=== PATIENT | male | born 1965 | race Caucasian/White ===

== ENCOUNTER 2016-12-24 20:28 | Inpatient (IN) | payer MEDICARE ==
[~2016-12-24] VITALS: Ht 172.7 cm; Wt 68.7 kg
[2016-12-24 21:33] LABS: BASO % 1 % (0-3); EOS # 0.1 x10^3/uL (0.0-0.7); EOS % 2 % (0-3); HEMATOCRIT 41.4 % (39.0-53.0); LYMPH # 2.4 x10^3/uL (1.0-4.8); LYMPH % 34 % (24-48); MEAN CORPUSCULAR HEMOGLOBIN 31 pg (25-35); MEAN CORPUSCULAR HGB CONC 34 g/dL (31-37); MEAN CORPUSCULAR VOLUME 92 fL (79-100); MONO # 0.8 x10^3/uL (0.0-1.1); MONO % 11 % (0-9); NEUT # 3.6 x10^3uL (1.8-7.7); NEUT % 52 % (31-73); PLATELET COUNT 226 x10^3/uL (140-400); RED BLOOD COUNT 4.48 x10^6/uL (4.30-5.70); RED CELL DISTRIBUTION WIDTH 13.4 % (11.5-14.5); WHITE BLOOD COUNT 6.9 x10^3/uL (4.0-11.0)
[2016-12-24 21:42] LABS: ALBUMIN 3.5 g/dL (3.4-5.0); ALBUMIN/GLOBULIN RATIO 1.2 (1.0-1.7); CALCIUM 8.8 mg/dL (8.5-10.1); CREATININE 0.9 mg/dL (0.7-1.3); GFR 88.3; MAGNESIUM 2.2 mg/dL (1.8-2.4); POTASSIUM 3.4 mmol/L (3.5-5.1); TOTAL BILIRUBIN 0.5 mg/dL (0.2-1.0); TOTAL PROTEIN 6.5 g/dL (6.4-8.2)
--- NOTE | 2016-12-24 21:55 | PHYS DOC ---
Past History Past Medical History: Dementia, Depression, Hypothyroid Past Surgical History: No Surgical History Alcohol Use: None Drug Use: None Adult General Chief Complaint Chief Complaint: PSYCH EVALUATION HPI HPI 51-year-old male presenting to the emergency department today for [facility] medical clearance. The patient has a history of early onset dementia hypothyroidism and major depression. He is currently struggling with anxiety for which she has had his medication changed a few times without much success. He's received most of his psychiatric treatment for [facility]. Onset 2-3 days. Location generalized. Duration intermittent. The patient denies any acute pain. Review of systems is negative for shortness of breath chest pain abdominal pain nausea vomiting headache neck stiffness confusion numbness weakness tingling vision changes slurring of speech. All other review of systems is negative unless otherwise noted in history of present illness. ED course: 51-year-old male presenting to the emergency department today for medical clearance for the [place] [facility]. Physical exam baseline and unremarkable. Blood work obtained which was unremarkable. Head CT negative. Patient is medically cleared. Patient was then admitted to our behavioral psychiatric unit. Review of Systems Review of Systems SEE ABOVE. Allergies Allergies Allergies Coded Allergies Type Severity Reaction Last Updated Verified No Known Drug Allergies 12/24/16 No Physical Exam Physical Exam SEE ABOVE Constitutional: Well developed, well nourished, no acute distress, non-toxic appearance. HENT: Normocephalic, atraumatic, bilateral external ears normal, oropharynx moist, no oral exudates, nose normal. Eyes: PERRLA, EOMI, conjunctiva normal, no discharge. [] Neck: Normal range of motion, no tenderness, supple, no stridor. Cardiovascular:Heart rate regular rhythm, no murmur [] Lungs & Thorax: Bilateral breath sounds clear to auscultation Abdomen: Bowel sounds normal, soft, no tenderness, no masses, no pulsatile masses. [] Skin: Warm, dry, no erythema, no rash. Back: No tenderness, no CVA tenderness. [] Extremities: No tenderness, no cyanosis, no clubbing, ROM intact, no edema. Neurologic: Alert and oriented to person which is his baseline, normal motor function, normal sensory function, no focal deficits noted. Psychologic: Affect normal, judgement normal, mood normal. [] Current Patient Data Vital Signs Vital Signs Date Time Temp Pulse Resp B/P (MAP) Pulse Ox O2 Delivery O2 Flow Rate FiO2 12/24/16 20:28 98.2 73 16 100 Room Air Lab Results Laboratory Tests Test 12/24/16 21:05 White Blood Count 6.9 x10^3/uL (4.0-11.0) Red Blood Count 4.48 x10^6/uL (4.30-5.70) Hemoglobin 14.0 g/dL (13.0-17.5) Hematocrit 41.4 % (39.0-53.0) Mean Corpuscular Volume 92 fL (79-100) Mean Corpuscular Hemoglobin 31 pg (25-35) Mean Corpuscular Hemoglobin Concent 34 g/dL (31-37) Red Cell Distribution Width 13.4 % (11.5-14.5) Platelet Count 226 x10^3/uL (140-400) Neutrophils (%) (Auto) 52 % (31-73) Lymphocytes (%) (Auto) 34 % (24-48) Monocytes (%) (Auto) 11 % (0-9) H Eosinophils (%) (Auto) 2 % (0-3) Basophils (%) (Auto) 1 % (0-3) Neutrophils # (Auto) 3.6 x10^3uL (1.8-7.7) Lymphocytes # (Auto) 2.4 x10^3/uL (1.0-4.8) Monocytes # (Auto) 0.8 x10^3/uL (0.0-1.1) Eosinophils # (Auto) 0.1 x10^3/uL (0.0-0.7) Basophils # (Auto) 0.0 x10^3/uL (0.0-0.2) Sodium Level 144 mmol/L (136-145) Potassium Level 3.4 mmol/L (3.5-5.1) L Chloride Level 107 mmol/L (98-107) Carbon Dioxide Level 32 mmol/L (21-32) Anion Gap 5 (6-14) L Blood Urea Nitrogen 12 mg/dL (8-26) Creatinine 0.9 mg/dL (0.7-1.3) Estimated GFR (Cockcroft-Gault) 88.3 BUN/Creatinine Ratio 13 (6-20) Glucose Level 98 mg/dL (70-99) Calcium Level 8.8 mg/dL (8.5-10.1) Magnesium Level 2.2 mg/dL (1.8-2.4) Total Bilirubin 0.5 mg/dL (0.2-1.0) Aspartate Amino Transferase (AST) 19 U/L (15-37) Alanine Aminotransferase (ALT) 26 U/L (16-63) Alkaline Phosphatase 77 U/L (46-116) Total Protein 6.5 g/dL (6.4-8.2) Albumin 3.5 g/dL (3.4-5.0) Albumin/Globulin Ratio 1.2 (1.0-1.7) Ethyl Alcohol Level < 10 mg/dL (0-10) EKG EKG [] Radiology/Procedures Radiology/Procedures [] Course & Med Decision Making Course & Med Decision Making Pertinent Labs and Imaging studies reviewed. (See chart for details) [] Dragon Disclaimer Dragon Disclaimer This chart was dictated in whole or in part using Voice Recognition software in a busy, high-work load, and often noisy Emergency Department environment. It may contain unintended and wholly unrecognized errors or omissions. Departure Departure: Impression: Primary Impression: Medical clearance for psychiatric admission Disposition: ADMITTED INPATIENT Condition: STABLE Referrals: CHRISTOPHE NEWBY DO (PCP) SATINDER CERVANTES MD Dec 24, 2016 21:55
[2016-12-24 22:21] LABS: AMPHETAMINE/METHAMPHETAMINE NEG (NEG); BARBITURATES NEG (NEG); BENZODIAZEPINES POS (NEG); CANNABINOIDS NEG (NEG); COCAINE NEG (NEG); METHADONE NEG (NEG); OPIATES NEG (NEG); PHENCYCLIDINE NEG (NEG)
[2016-12-24 22:33] LABS: BILIRUBIN,URINE NEG (NEG); CLARITY,URINE CLEAR; COLOR,URINE STRAW; GLUCOSE,URINE NEG (NEG)
[2016-12-24 22:34] LABS: BACTERIA,URINE 0 /HPF (0-FEW); NITRITE,URINE NEG (NEG); SQUAMOUS EPITHELIAL CELL,UR MANY /LPF; UROBILINOGEN,URINE 0.2 mg/dL (0.2 mg/dL)
[2016-12-24 22:35] LABS: AMORPHOUS SEDIMENT,UR PRESENT /HPF
--- NOTE | 2016-12-24 22:48 | RAD ---
CT scan of the head without contrast 12/24/2016 Clinical History: Altered mental status and sepsis morning. Technique: Unenhanced, contiguous, 5 mm axial sections were obtained through the head. Findings: No previous imaging studies are available for comparison. There is generalized parenchymal atrophy. Areas of decreased attenuation are seen within the periventricular and subcortical white matter of both cerebral hemispheres consistent with areas of small vessel ischemic disease. No acute parenchymal abnormality is seen. No extra-axial fluid collection is noted. No skull fracture is seen. Impression: No acute intracranial abnormality is seen. Electronically signed by: Mateusz Rivas MD (12/24/2016 10:45 PM) [facility]
[2016-12-24] MEDS ORDERED: SERT100T8 PO (23:26)
[2016-12-24] MEDS ORDERED: GABA-585 PO (23:26)
[2016-12-24] MEDS ORDERED: ACET325T9 PO (23:26)
[2016-12-24] MEDS ORDERED: TRAZ50TA15 PO (23:26)
[2016-12-24] MEDS ORDERED: LEVO112T2 PO (23:26)
[2016-12-24] MEDS ORDERED: DOCU-109 PO (23:26)
[2016-12-24] MEDS ORDERED: MEMA10TA PO (23:26)
[2016-12-24] MEDS ORDERED: ALPR0.254 PO ×2 (23:26)
[2016-12-24] MEDS ORDERED: OLAN2.5T3 PO (23:26)
[2016-12-25] MEDS ORDERED: MAGNESIUM HYDROXIDE 2,400 MG/30 ML ORAL.SUSP. PO PRN
[2016-12-25] MEDS ORDERED: METHYL SALICYLATE/MENTHOL TOPICAL OINTMENT 29GM TUBE. TP PRN
[2016-12-25] MEDS ORDERED: MAG HYDROX/AL HYDROX/SIMETH 30 ML ORAL.SUSP PO PRN
[2016-12-25 00:21] VITALS: BP 101/68
[2016-12-25] MEDS ORDERED: ALPRAZolam 0.25 MG TABLET PO PRN (00:30)
[2016-12-25] MEDS ORDERED: ACETAMINOPHEN 325 MG TABLET PO PRN (00:30)
--- NOTE | 2016-12-25 05:13 | EKG ---
[address] [address] Test Date: 2016-12-24 Test Time: 21:08:18 Pat Name: MIGUEL PINK Department: Room: Gender: M Contract Negotiation Manager: CLAUDIA : 1965 Requested By: ASTINDER CERVANTES Order Number: [id number] Reading MD: Measurements Intervals [place] Rate: 66 P: 50 AK: 138 QRS: 56 QRSD: 90 T: 48 QT: 388 QTc: 408 Interpretive Statements SINUS RHYTHM OTHERWISE NORMAL ECG RI6.01 No previous ECG available for comparison
[2016-12-25] MEDS: LEVOTHYROXINE 112 MCG TABLET PO SCH (05:47)
[2016-12-25 07:06] VITALS: BP 104/66
[2016-12-25] MEDS: MEMANTINE 10 MG TABLET. PO SCH ×2 (09:19→20:16)
[2016-12-25] MEDS: DOCUSATE SODIUM 100 MG CAPSULE PO SCH (09:19)
[2016-12-25] MEDS: ALPRAZolam 0.25 MG TABLET PO SCH (09:21)
[2016-12-25] MEDS: OLANZapine 2.5 MG TABLET PO SCH ×2 (09:21→20:16)
[2016-12-25] MEDS: SERTRALINE 50 MG TABLET. PO SCH (09:21)
[2016-12-25] MEDS: GABAPENTIN 100 MG CAPSULE. PO SCH ×3 (09:21→20:16)
[2016-12-25 13:40] LABS: THYROID STIM HORMONE (TSH) 4.767 uIU/mL (0.358-3.740)
[2016-12-25 16:04] VITALS: BP 120/91
[2016-12-25 19:08] LABS: T3 TOTAL 63 ng/dL (71-180); THYROXINE 5.4 ug/dL (4.5-12.0)
[2016-12-25] MEDS: POTASSIUM CHLORIDE 20 MEQ TABLET.ER. PO SCH (20:16)
[2016-12-25] MEDS: QUEtiapine 25 MG TABLET. PO SCH (20:16)
[2016-12-25] MEDS: traZODone 50 MG TABLET. PO SCH (20:16)
--- NOTE | 2016-12-25 20:54 | PDOC ---
Exam Hiram Demential Exam: Hiram Note: Please also refer to the separate dictated note~for this date of service dictated separately.~Patient seen individually. Discussed the patient with Nursing staff reviewed the chart.~Reviewed interim history and current functioning. Reviewed vital signs,~Labs/ Radiology~and current medications noted below. Continue current treatment with the changes noted in the dictated addendum note Assessment: Vital Signs: Vital Signs Date Time Temp Pulse Resp B/P (MAP) Pulse Ox O2 Delivery O2 Flow Rate FiO2 12/25/16 16:04 97.8 95 18 120/91 (101) 94 12/24/16 23:20 Room Air I&O Intake and Output 12/26/16 07:00 Intake Total 600 ml Balance 600 ml Intake Oral 600 ml Labs: Laboratory Tests Test 12/24/16 21:05 12/24/16 21:28 White Blood Count 6.9 x10^3/uL (4.0-11.0) Red Blood Count 4.48 x10^6/uL (4.30-5.70) Hemoglobin 14.0 g/dL (13.0-17.5) Hematocrit 41.4 % (39.0-53.0) Mean Corpuscular Volume 92 fL (79-100) Mean Corpuscular Hemoglobin 31 pg (25-35) Mean Corpuscular Hemoglobin Concent 34 g/dL (31-37) Red Cell Distribution Width 13.4 % (11.5-14.5) Platelet Count 226 x10^3/uL (140-400) Neutrophils (%) (Auto) 52 % (31-73) Lymphocytes (%) (Auto) 34 % (24-48) Monocytes (%) (Auto) 11 % (0-9) H Eosinophils (%) (Auto) 2 % (0-3) Basophils (%) (Auto) 1 % (0-3) Neutrophils # (Auto) 3.6 x10^3uL (1.8-7.7) Lymphocytes # (Auto) 2.4 x10^3/uL (1.0-4.8) Monocytes # (Auto) 0.8 x10^3/uL (0.0-1.1) Eosinophils # (Auto) 0.1 x10^3/uL (0.0-0.7) Basophils # (Auto) 0.0 x10^3/uL (0.0-0.2) Sodium Level 144 mmol/L (136-145) Potassium Level 3.4 mmol/L (3.5-5.1) L Chloride Level 107 mmol/L (98-107) Carbon Dioxide Level 32 mmol/L (21-32) Anion Gap 5 (6-14) L Blood Urea Nitrogen 12 mg/dL (8-26) Creatinine 0.9 mg/dL (0.7-1.3) Estimated GFR (Cockcroft-Gault) 88.3 BUN/Creatinine Ratio 13 (6-20) Glucose Level 98 mg/dL (70-99) Calcium Level 8.8 mg/dL (8.5-10.1) Magnesium Level 2.2 mg/dL (1.8-2.4) Iron Level 53 ug/dL (65-175) L Total Iron Binding Capacity 244 ug/dL (250-450) L Iron Saturation 22 % (15-34) Total Bilirubin 0.5 mg/dL (0.2-1.0) Aspartate Amino Transferase (AST) 19 U/L (15-37) Alanine Aminotransferase (ALT) 26 U/L (16-63) Alkaline Phosphatase 77 U/L (46-116) Total Protein 6.5 g/dL (6.4-8.2) Albumin 3.5 g/dL (3.4-5.0) Albumin/Globulin Ratio 1.2 (1.0-1.7) Triglycerides Level 61 mg/dL (0-150) Cholesterol Level 214 mg/dL (0-200) H LDL Cholesterol, Calculated 120 mg/dL (0-100) H VLDL Cholesterol, Calculated 12 mg/dL (0-40) Non-HDL Cholesterol Calculated 132 mg/dL (0-129) H HDL Cholesterol 82 mg/dL (40-60) H Cholesterol/HDL Ratio 2.0 Vitamin B12 Level 812 pg/mL (247-911) 25-Hydroxy Vitamin D Total Pending Thyroid Stimulating Hormone (TSH) 4.767 uIU/mL (0.358-3.740) Thyroxine (T4) 5.4 ug/dL (4.5-12.0) Total Triiodothyronine (TT3) 63 ng/dL (71-180) L Ethyl Alcohol Level < 10 mg/dL (0-10) RPR Titer Additional Testing Pending Urine Collection Type U cath Urine Color Straw Urine Clarity Clear Urine pH 5.5 Urine Specific [place] 1.025 Urine Protein Neg (NEG-TRACE) Urine Glucose (UA) Neg mg/dL (NEG) Urine Ketones (Stick) Neg mg/dL (NEG) Urine Blood Neg (NEG) Urine Nitrite Neg (NEG) Urine Bilirubin Neg (NEG) Urine Urobilinogen Dipstick 0.2 mg/dL (0.2 mg/dL) Urine Leukocyte Esterase Neg (NEG) Urine RBC 1-2 /HPF (0-2) Urine WBC 1-4 /HPF (0-4) Urine Squamous Epithelial Cells Many /LPF Urine Amorphous Sediment Present /HPF Urine Bacteria 0 /HPF (0-FEW) Urine Opiates Screen Neg (NEG) Urine Methadone Screen Neg (NEG) Urine Barbiturates Neg (NEG) Urine Phencyclidine Screen Neg (NEG) Urine Amphetamine/Methamphetamine Neg (NEG) Urine Benzodiazepines Screen Pos (NEG) Urine Cocaine Screen Neg (NEG) Urine Cannabinoids Screen Neg (NEG) Urine Ethyl Alcohol Neg (NEG) Current Medications: Meds: Current Medications Multi-Ingredient Ointment (Analgesic [place]) 1 mary PRN QID PRN TP MUSCLE PAIN; Start 12/25/16 at 00:00 Al Hydroxide/Mg Hydroxide (Mylanta Plus Xs) 15 ml PRN AFTMEALHC PRN PO DYSPEPSIA; Start 12/25/16 at 00:00 Magnesium Hydroxide (Milk Of Magnesia) 2,400 mg PRN QHS PRN PO CONSTIPATION; Start 12/25/16 at 00:00 Acetaminophen (Tylenol) 650 mg PRN Q6HRS PRN PO PAIN; Start 12/25/16 at 00:30 Alprazolam (Xanax) 0.25 mg DAILY PO Last administered on 12/25/16 09:21; Start 12/25/16 at 09:00 Alprazolam (Xanax) 0.25 mg PRN Q6HRS PRN PO ANXIETY / AGITATION; Start at 00:30 Docusate Sodium (Colace) 100 mg DAILY PO Last administered on 12/25/16 09:19 ; Start 12/25/16 at 09:00 Gabapentin (Neurontin) 100 mg TID PO Last administered on 12/25/16 20:16; Start 12/25/16 at 09:00 Levothyroxine Sodium (Synthroid) 112 mcg DAILY06 PO Last administered on 05:47; Start 12/25/16 at 06:00 Memantine (Namenda) 10 mg BID PO Last administered on 12/25/16 20:16; Start 12/25/16 at 09:00 Olanzapine (ZyPREXA) 2.5 mg BID PO Last administered on 12/25/16 20:16; Start 12/25/16 at 09:00 Sertraline HCl (Zoloft) 150 mg DAILY PO Last administered on 12/25/16 09:21; Start 12/25/16 at 09:00 Trazodone HCl (Desyrel) 75 mg HS PO Last administered on 12/25/16 20:16; Start 12/25/16 at 21:00 Potassium Chloride (Klor-Con) 20 meq BID PO Last administered on 12/25/16 20: 16; Start 12/25/16 at 21:00 Quetiapine Fumarate (SEROquel) 25 mg QHS PO Last administered on 12/25/16 20: 16; Start 12/25/16 at 21:00 Active Scripts Active Reported Alprazolam 0.25 Mg Tablet 0.25 Mg PO PRN Q6HRS PRN Tylenol (Acetaminophen) 325 Mg Tablet 2 Tab PO PRN Q6HRS PRN Trazodone Hcl 50 Mg Tablet 75 Mg PO HS Sertraline Hcl 100 Mg Tablet 150 Mg PO DAILY Zyprexa (Olanzapine) 2.5 Mg Tablet 2.5 Mg PO BID Namenda (Memantine Hcl) 10 Mg Tablet 10 Mg PO BID Synthroid (Levothyroxine Sodium) 112 Mcg Tablet 112 Mcg PO DAILYAC Gabapentin 100 Mg Capsule 100 Mg PO TID Colace (Docusate Sodium) 100 Mg Capsule 100 Mg PO DAILY Alprazolam 0.25 Mg Tablet 0.25 Mg PO DAILY14 Diagnosis: Problems: (1) Anxiety disorder (2) Dementia, vascular, with delusions (3) Dementia, vascular, with depression (4) Dementia in Alzheimer's disease with depression (5) Dementia in Alzheimer's disease with delusions (6) Impulse control disorder LETICIA GUERRA MD Dec 25, 2016 20:54
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
[2016-12-26 04:09] LABS: HEMOGLOBIN A1C 5.5 % (4.8-5.6)
[2016-12-26] MEDS: LEVOTHYROXINE 112 MCG TABLET PO SCH (05:39)
[2016-12-26 06:30] VITALS: BP 108/60
[2016-12-26] MEDS: SERTRALINE 50 MG TABLET. PO SCH (08:18)
[2016-12-26] MEDS: GABAPENTIN 100 MG CAPSULE. PO SCH ×3 (08:18→19:26)
[2016-12-26] MEDS: DOCUSATE SODIUM 100 MG CAPSULE PO SCH (08:18)
[2016-12-26] MEDS: OLANZapine 2.5 MG TABLET PO SCH ×2 (08:18→19:27)
[2016-12-26] MEDS: MEMANTINE 10 MG TABLET. PO SCH ×2 (08:19→19:27)
[2016-12-26] MEDS: POTASSIUM CHLORIDE 20 MEQ TABLET.ER. PO SCH ×2 (08:19→19:30)
[2016-12-26] MEDS: ALPRAZolam 0.25 MG TABLET PO SCH (08:21)
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
[2016-12-26 16:44] VITALS: BP 102/74
[2016-12-26] MEDS: QUEtiapine 25 MG TABLET. PO SCH (19:27)
[2016-12-26] MEDS: traZODone 50 MG TABLET. PO SCH (19:29)
--- NOTE | 2016-12-26 20:38 | PDOC ---
Exam Hiram Demential Exam: Hiram Note: Please also refer to the separate dictated note~for this date of service dictated separately.~Patient seen individually. Discussed the patient with Nursing staff reviewed the chart.~Reviewed interim history and current functioning. Reviewed vital signs,~Labs/ Radiology~and current medications noted below. Continue current treatment with the changes noted in the dictated addendum note Assessment: Vital Signs: Vital Signs Date Time Temp Pulse Resp B/P (MAP) Pulse Ox O2 Delivery O2 Flow Rate FiO2 12/26/16 16:44 97.7 106 18 102/74 (83) 96 12/24/16 23:20 Room Air I&O Intake and Output 12/27/16 07:00 Intake Total 840 ml Balance 840 ml Intake Oral 840 ml # Bowel Movements 1 Current Medications: Meds: Current Medications Multi-Ingredient Ointment (Analgesic [place]) 1 mary PRN QID PRN TP MUSCLE PAIN; Start 12/25/16 at 00:00 Al Hydroxide/Mg Hydroxide (Mylanta Plus Xs) 15 ml PRN AFTMEALHC PRN PO DYSPEPSIA; Start 12/25/16 at 00:00 Magnesium Hydroxide (Milk Of Magnesia) 2,400 mg PRN QHS PRN PO CONSTIPATION; Start 12/25/16 at 00:00 Acetaminophen (Tylenol) 650 mg PRN Q6HRS PRN PO PAIN; Start 12/25/16 at 00:30 Alprazolam (Xanax) 0.25 mg DAILY PO Last administered on 12/26/16 08:21; Start 12/25/16 at 09:00 Alprazolam (Xanax) 0.25 mg PRN Q6HRS PRN PO ANXIETY / AGITATION; Start at 00:30 Docusate Sodium (Colace) 100 mg DAILY PO Last administered on 12/26/16 08:18 ; Start 12/25/16 at 09:00 Gabapentin (Neurontin) 100 mg TID PO Last administered on 12/26/16 19:26; Start 12/25/16 at 09:00 Levothyroxine Sodium (Synthroid) 112 mcg DAILY06 PO Last administered on 05:39; Start 12/25/16 at 06:00; Stop 12/26/16 at 15:10; Status DC Memantine (Namenda) 10 mg BID PO Last administered on 12/26/16 19:27; Start 12/25/16 at 09:00 Olanzapine (ZyPREXA) 2.5 mg BID PO Last administered on 12/26/16 19:27; Start 12/25/16 at 09:00 Sertraline HCl (Zoloft) 150 mg DAILY PO Last administered on 12/26/16 08:18; Start 12/25/16 at 09:00 Trazodone HCl (Desyrel) 75 mg HS PO Last administered on 12/26/16 19:29; Start 12/25/16 at 21:00 Potassium Chloride (Klor-Con) 20 meq BID PO Last administered on 12/26/16 19: 30; Start 12/25/16 at 21:00 Quetiapine Fumarate (SEROquel) 25 mg QHS PO Last administered on 12/26/16 19: 27; Start 12/25/16 at 21:00 Levothyroxine Sodium (Synthroid) 137 mcg DAILY06 PO ; Start 12/27/16 at 06:00 Divalproex Sodium (Depakote Sprinkles) 125 mg BID92 PO ; Start 12/27/16 at 09: 00 Active Scripts Active Reported Alprazolam 0.25 Mg Tablet 0.25 Mg PO PRN Q6HRS PRN Tylenol (Acetaminophen) 325 Mg Tablet 2 Tab PO PRN Q6HRS PRN Trazodone Hcl 50 Mg Tablet 75 Mg PO HS Sertraline Hcl 100 Mg Tablet 150 Mg PO DAILY Zyprexa (Olanzapine) 2.5 Mg Tablet 2.5 Mg PO BID Namenda (Memantine Hcl) 10 Mg Tablet 10 Mg PO BID Synthroid (Levothyroxine Sodium) 112 Mcg Tablet 112 Mcg PO DAILYAC Gabapentin 100 Mg Capsule 100 Mg PO TID Colace (Docusate Sodium) 100 Mg Capsule 100 Mg PO DAILY Alprazolam 0.25 Mg Tablet 0.25 Mg PO DAILY14 Diagnosis: Problems: (1) Anxiety disorder (2) Dementia, vascular, with delusions (3) Dementia, vascular, with depression (4) Dementia in Alzheimer's disease with depression (5) Dementia in Alzheimer's disease with delusions (6) Impulse control disorder LETICIA GUERRA MD Dec 26, 2016 20:38
[2016-12-27] MEDS: LEVOTHYROXINE 137 MCG TABLET PO SCH (06:07)
[2016-12-27 06:12] VITALS: BP 138/96
[2016-12-27] MEDS: DOCUSATE SODIUM 100 MG CAPSULE PO SCH (09:48)
[2016-12-27] MEDS: POTASSIUM CHLORIDE 20 MEQ TABLET.ER. PO SCH ×2 (09:49→20:18)
[2016-12-27] MEDS: GABAPENTIN 100 MG CAPSULE. PO SCH ×3 (09:49→20:18)
[2016-12-27] MEDS: OLANZapine 2.5 MG TABLET PO SCH ×2 (09:49→20:18)
[2016-12-27] MEDS: MEMANTINE 10 MG TABLET. PO SCH ×2 (09:49→20:18)
[2016-12-27] MEDS: SERTRALINE 50 MG TABLET. PO SCH (09:49)
[2016-12-27] MEDS: DIVALPROEX 125 MG CAP.SPRINK PO SCH ×2 (09:52→14:21)
[2016-12-27] MEDS: ALPRAZolam 0.25 MG TABLET PO SCH (09:52)
[2016-12-27 16:32] VITALS: BP 120/73
[2016-12-27] MEDS: QUEtiapine 25 MG TABLET. PO SCH (20:18)
[2016-12-27] MEDS: traZODone 50 MG TABLET. PO SCH (20:18)
--- NOTE | 2016-12-27 20:44 | PDOC ---
Exam Hiram Demential Exam: Hiram Note: Please also refer to the separate dictated note~for this date of service dictated separately.~Patient seen individually. Discussed the patient with Nursing staff reviewed the chart.~Reviewed interim history and current functioning. Reviewed vital signs,~Labs/ Radiology~and current medications noted below. Continue current treatment with the changes noted in the dictated addendum note Assessment: Vital Signs: Vital Signs Date Time Temp Pulse Resp B/P (MAP) Pulse Ox O2 Delivery O2 Flow Rate FiO2 12/27/16 16:32 97.2 89 18 120/73 (89) 97 12/24/16 23:20 Room Air I&O Intake and Output 12/28/16 07:00 Intake Total 1080 ml Balance 1080 ml Intake Oral 1080 ml Current Medications: Meds: Current Medications Multi-Ingredient Ointment (Analgesic [place]) 1 mary PRN QID PRN TP MUSCLE PAIN; Start 12/25/16 at 00:00 Al Hydroxide/Mg Hydroxide (Mylanta Plus Xs) 15 ml PRN AFTMEALHC PRN PO DYSPEPSIA; Start 12/25/16 at 00:00 Magnesium Hydroxide (Milk Of Magnesia) 2,400 mg PRN QHS PRN PO CONSTIPATION; Start 12/25/16 at 00:00 Acetaminophen (Tylenol) 650 mg PRN Q6HRS PRN PO PAIN; Start 12/25/16 at 00:30 Alprazolam (Xanax) 0.25 mg DAILY PO Last administered on 12/27/16 09:52; Start 12/25/16 at 09:00 Alprazolam (Xanax) 0.25 mg PRN Q6HRS PRN PO ANXIETY / AGITATION; Start at 00:30 Docusate Sodium (Colace) 100 mg DAILY PO Last administered on 12/27/16 09:48 ; Start 12/25/16 at 09:00 Gabapentin (Neurontin) 100 mg TID PO Last administered on 12/27/16 20:18; Start 12/25/16 at 09:00 Levothyroxine Sodium (Synthroid) 112 mcg DAILY06 PO Last administered on 05:39; Start 12/25/16 at 06:00; Stop 12/26/16 at 15:10; Status DC Memantine (Namenda) 10 mg BID PO Last administered on 12/27/16 20:18; Start 12/25/16 at 09:00 Olanzapine (ZyPREXA) 2.5 mg BID PO Last administered on 12/27/16 20:18; Start 12/25/16 at 09:00 Sertraline HCl (Zoloft) 150 mg DAILY PO Last administered on 12/27/16 09:49; Start 12/25/16 at 09:00 Trazodone HCl (Desyrel) 75 mg HS PO Last administered on 12/27/16 20:18; Start 12/25/16 at 21:00 Potassium Chloride (Klor-Con) 20 meq BID PO Last administered on 12/27/16 20: 18; Start 12/25/16 at 21:00 Quetiapine Fumarate (SEROquel) 25 mg QHS PO Last administered on 12/27/16 20: 18; Start 12/25/16 at 21:00 Levothyroxine Sodium (Synthroid) 137 mcg DAILY06 PO Last administered on 06:07; Start 12/27/16 at 06:00 Divalproex Sodium (Depakote Sprinkles) 125 mg BID92 PO Last administered on 14:21; Start 12/27/16 at 09:00 Active Scripts Active Reported Alprazolam 0.25 Mg Tablet 0.25 Mg PO PRN Q6HRS PRN Tylenol (Acetaminophen) 325 Mg Tablet 2 Tab PO PRN Q6HRS PRN Trazodone Hcl 50 Mg Tablet 75 Mg PO HS Sertraline Hcl 100 Mg Tablet 150 Mg PO DAILY Zyprexa (Olanzapine) 2.5 Mg Tablet 2.5 Mg PO BID Namenda (Memantine Hcl) 10 Mg Tablet 10 Mg PO BID Synthroid (Levothyroxine Sodium) 112 Mcg Tablet 112 Mcg PO DAILYAC Gabapentin 100 Mg Capsule 100 Mg PO TID Colace (Docusate Sodium) 100 Mg Capsule 100 Mg PO DAILY Alprazolam 0.25 Mg Tablet 0.25 Mg PO DAILY14 Diagnosis: Problems: (1) Anxiety disorder (2) Dementia, vascular, with delusions (3) Dementia, vascular, with depression (4) Dementia in Alzheimer's disease with depression (5) Dementia in Alzheimer's disease with delusions (6) Impulse control disorder LETICIA GUERRA MD Dec 27, 2016 20:44
[2016-12-28] MEDS: LEVOTHYROXINE 137 MCG TABLET PO SCH (05:25)
[2016-12-28] MEDS: MEMANTINE 10 MG TABLET. PO SCH ×2 (09:40→19:25)
[2016-12-28] MEDS: POTASSIUM CHLORIDE 20 MEQ TABLET.ER. PO SCH ×2 (09:40→19:26)
[2016-12-28] MEDS: GABAPENTIN 100 MG CAPSULE. PO SCH ×3 (09:40→19:26)
[2016-12-28] MEDS: SERTRALINE 50 MG TABLET. PO SCH (09:40)
[2016-12-28] MEDS: OLANZapine 2.5 MG TABLET PO SCH ×2 (09:41→19:26)
[2016-12-28] MEDS: DOCUSATE SODIUM 100 MG CAPSULE PO SCH (09:41)
[2016-12-28] MEDS: DIVALPROEX 125 MG CAP.SPRINK PO SCH ×2 (09:41→13:35)
[2016-12-28] MEDS: ALPRAZolam 0.25 MG TABLET PO SCH (09:43)
[2016-12-28 16:43] VITALS: BP 116/76
[2016-12-28] MEDS: QUEtiapine 25 MG TABLET. PO SCH (19:25)
[2016-12-28] MEDS: traZODone 50 MG TABLET. PO SCH (19:25)
--- NOTE | 2016-12-28 20:53 | PDOC ---
Exam Hiram Demential Exam: Hiram Note: Please also refer to the separate dictated note~for this date of service dictated separately.~Patient seen individually. Discussed the patient with Nursing staff reviewed the chart.~Reviewed interim history and current functioning. Reviewed vital signs,~Labs/ Radiology~and current medications noted below. Continue current treatment with the changes noted in the dictated addendum note Assessment: Vital Signs: Vital Signs Date Time Temp Pulse Resp B/P (MAP) Pulse Ox O2 Delivery O2 Flow Rate FiO2 12/28/16 16:43 98.0 87 20 116/76 (89) 99 12/24/16 23:20 Room Air I&O Intake and Output 12/29/16 07:00 Intake Total 720 ml Balance 720 ml Intake Oral 720 ml Current Medications: Meds: Current Medications Multi-Ingredient Ointment (Analgesic [place]) 1 mary PRN QID PRN TP MUSCLE PAIN; Start 12/25/16 at 00:00 Al Hydroxide/Mg Hydroxide (Mylanta Plus Xs) 15 ml PRN AFTMEALHC PRN PO DYSPEPSIA; Start 12/25/16 at 00:00 Magnesium Hydroxide (Milk Of Magnesia) 2,400 mg PRN QHS PRN PO CONSTIPATION; Start 12/25/16 at 00:00 Acetaminophen (Tylenol) 650 mg PRN Q6HRS PRN PO PAIN; Start 12/25/16 at 00:30 Alprazolam (Xanax) 0.25 mg DAILY PO Last administered on 12/28/16 09:43; Start 12/25/16 at 09:00 Alprazolam (Xanax) 0.25 mg PRN Q6HRS PRN PO ANXIETY / AGITATION; Start at 00:30 Docusate Sodium (Colace) 100 mg DAILY PO Last administered on 12/28/16 09:41 ; Start 12/25/16 at 09:00 Gabapentin (Neurontin) 100 mg TID PO Last administered on 12/28/16 19:26; Start 12/25/16 at 09:00 Levothyroxine Sodium (Synthroid) 112 mcg DAILY06 PO Last administered on 05:39; Start 12/25/16 at 06:00; Stop 12/26/16 at 15:10; Status DC Memantine (Namenda) 10 mg BID PO Last administered on 12/28/16 19:25; Start 12/25/16 at 09:00 Olanzapine (ZyPREXA) 2.5 mg BID PO Last administered on 12/28/16 19:26; Start 12/25/16 at 09:00 Sertraline HCl (Zoloft) 150 mg DAILY PO Last administered on 12/28/16 09:40; Start 12/25/16 at 09:00 Trazodone HCl (Desyrel) 75 mg HS PO Last administered on 12/28/16 19:25; Start 12/25/16 at 21:00 Potassium Chloride (Klor-Con) 20 meq BID PO Last administered on 12/28/16 19: 26; Start 12/25/16 at 21:00 Quetiapine Fumarate (SEROquel) 25 mg QHS PO Last administered on 12/28/16 19: 25; Start 12/25/16 at 21:00 Levothyroxine Sodium (Synthroid) 137 mcg DAILY06 PO Last administered on 05:25; Start 12/27/16 at 06:00 Divalproex Sodium (Depakote Sprinkles) 125 mg BID92 PO Last administered on 13:35; Start 12/27/16 at 09:00 Active Scripts Active Reported Alprazolam 0.25 Mg Tablet 0.25 Mg PO PRN Q6HRS PRN Tylenol (Acetaminophen) 325 Mg Tablet 2 Tab PO PRN Q6HRS PRN Trazodone Hcl 50 Mg Tablet 75 Mg PO HS Sertraline Hcl 100 Mg Tablet 150 Mg PO DAILY Zyprexa (Olanzapine) 2.5 Mg Tablet 2.5 Mg PO BID Namenda (Memantine Hcl) 10 Mg Tablet 10 Mg PO BID Synthroid (Levothyroxine Sodium) 112 Mcg Tablet 112 Mcg PO DAILYAC Gabapentin 100 Mg Capsule 100 Mg PO TID Colace (Docusate Sodium) 100 Mg Capsule 100 Mg PO DAILY Alprazolam 0.25 Mg Tablet 0.25 Mg PO DAILY14 Diagnosis: Problems: (1) Anxiety disorder (2) Dementia, vascular, with delusions (3) Dementia, vascular, with depression (4) Dementia in Alzheimer's disease with depression (5) Dementia in Alzheimer's disease with delusions (6) Impulse control disorder LETICIA GUERRA MD Dec 28, 2016 20:53
--- NOTE | 2016-12-29 00:12 | PN ---
DATE: 12/26/2016 This is a late entry 12/26/2016, covers elements not covered in my initial note of 12/26/2016. I met with the patient evening of 12/26/2016. The patient slept 6-3/4 hours previous evening, resistive, anxious, restless, confused. He is more agitated after lunch. Walks with a gait belt, had a bowel movement, then was much calmer, compliant with his medications. REVIEW OF SYSTEMS: Ambulation impaired. No CV, , pulmonary, eye, ENT system symptoms on review. Reliability poor. MENTAL STATUS EXAM: Oriented to himself. Insight, judgment, recent and remote memory, attention, concentration, fund of knowledge poor, consistent with his diagnosis. LABORATORY DATA: Reviewed. IMPRESSION: Unchanged from initial note. PLAN: Start Depakote Sprinkles 125 mg twice a day. Check CBC, CMP, valproic acid level in 3 days and may consider reducing the Zyprexa scheduled at a later date currently at 2.5 mg b.i.d. Maintain Zoloft 150 mg a day, Namenda 10 mg b.i.d., Xanax 0.25 mg daily, trazodone 75 mg at bedtime p.r.n., Seroquel 25 mg at bedtime. Review drug interactions risk/benefit ratio favors no further change. MAN Nilda GUERRA MD DR: WENDY/evie JOB#: [id number] / [id number]
--- NOTE | 2016-12-29 03:57 | PN ---
DATE: 12/27/2016 This late entry, date of service 12/27/2016, covers elements not covered in my initial note of 12/27/2016. SUBJECTIVE: The patient was seen individually evening of 12/27/2016, staffed at treatment team meeting with the entire team morning of 12/27/2016. Reviewed his history with the onset of dementia at age 48. He is oblivious of his surroundings, confused, but calm, cooperative, at times restless. Once he is restless, if he is assisted in his walking, he seems to calm down. He was seen by Dr. Padilla for Neurology consult with question of G[place]'s, but this is not evident. REVIEW OF SYSTEMS: Ambulation impaired. No CV, , pulmonary, eye, ENT system symptoms on review. Reliability poor. MENTAL STATUS EXAM: Oriented to himself. Insight, judgment, recent and remote memory, attention, concentration, fund of knowledge poor, consistent with his diagnosis mentioned in my initial note. PLAN: Continue current psychotropics mentioned in my initial note. Reviewed drug interactions. Risk/benefit ratio favors no further change. MAN Nilda GUERRA MD DR: WENDY/evie JOB#: [id number] / [id number]
[2016-12-29] MEDS: LEVOTHYROXINE 137 MCG TABLET PO SCH (05:40)
[2016-12-29 06:35] VITALS: BP 109/80
[2016-12-29] MEDS: MEMANTINE 10 MG TABLET. PO SCH ×2 (09:02→20:55)
[2016-12-29] MEDS: POTASSIUM CHLORIDE 20 MEQ TABLET.ER. PO SCH ×2 (09:02→20:56)
[2016-12-29] MEDS: DIVALPROEX 125 MG CAP.SPRINK PO SCH ×2 (09:02→14:23)
[2016-12-29] MEDS: DOCUSATE SODIUM 100 MG CAPSULE PO SCH (09:02)
[2016-12-29] MEDS: GABAPENTIN 100 MG CAPSULE. PO SCH ×3 (09:03→20:55)
[2016-12-29] MEDS: ALPRAZolam 0.25 MG TABLET PO SCH (09:03)
[2016-12-29] MEDS: OLANZapine 2.5 MG TABLET PO SCH ×2 (09:03→20:56)
[2016-12-29] MEDS: SERTRALINE 50 MG TABLET. PO SCH (09:03)
[2016-12-29 11:11] LABS: HEMOGLOBIN 15.3 g/dL (13.0-17.5); RED BLOOD COUNT 4.92 x10^6/uL (4.30-5.70); RED CELL DISTRIBUTION WIDTH 13.3 % (11.5-14.5); WHITE BLOOD COUNT 7.2 x10^3/uL (4.0-11.0)
[2016-12-29 11:20] LABS: ALBUMIN/GLOBULIN RATIO 1.1 (1.0-1.7); ALK PHOS 87 U/L (46-116); ALT (SGPT) 33 U/L (16-63); ANION GAP 7 (6-14); AST (SGOT) 30 U/L (15-37); BLOOD UREA NITROGEN 12 mg/dL (8-26); BUN/CREATININE RATIO 13 (6-20); CALCIUM 9.2 mg/dL (8.5-10.1); CARBON DIOXIDE 32 mmol/L (21-32); CHLORIDE 103 mmol/L (98-107); CREATININE 0.9 mg/dL (0.7-1.3); GFR 88.3; GLUCOSE 101 mg/dL (70-99); POTASSIUM 4.2 mmol/L (3.5-5.1); SODIUM 142 mmol/L (136-145); TOTAL BILIRUBIN 0.6 mg/dL (0.2-1.0); TOTAL PROTEIN 7.7 g/dL (6.4-8.2)
[2016-12-29 11:22] LABS: VAL ACID 19 mcg/mL (50-100)
[2016-12-29 16:17] VITALS: BP 110/68
[2016-12-29] MEDS: QUEtiapine 25 MG TABLET. PO SCH (20:55)
[2016-12-29] MEDS: traZODone 50 MG TABLET. PO SCH (20:56)
--- NOTE | 2016-12-29 21:57 | PDOC ---
Exam Hiram Demential Exam: Hiram Note: Please also refer to the separate dictated note~for this date of service dictated separately.~Patient seen individually. Discussed the patient with Nursing staff reviewed the chart.~Reviewed interim history and current functioning. Reviewed vital signs,~Labs/ Radiology~and current medications noted below. Continue current treatment with the changes noted in the dictated addendum note Assessment: Vital Signs: Vital Signs Date Time Temp Pulse Resp B/P (MAP) Pulse Ox O2 Delivery O2 Flow Rate FiO2 12/29/16 16:17 97.9 99 20 110/68 (82) 97 Room Air I&O Intake and Output 12/30/16 07:00 Intake Total 1200 ml Balance 1200 ml Intake Oral 1200 ml Labs: Laboratory Tests Test 12/29/16 10:48 White Blood Count 7.2 x10^3/uL (4.0-11.0) Red Blood Count 4.92 x10^6/uL (4.30-5.70) Hemoglobin 15.3 g/dL (13.0-17.5) Hematocrit 46.0 % (39.0-53.0) Mean Corpuscular Volume 93 fL (79-100) Mean Corpuscular Hemoglobin 31 pg (25-35) Mean Corpuscular Hemoglobin Concent 33 g/dL (31-37) Red Cell Distribution Width 13.3 % (11.5-14.5) Platelet Count 256 x10^3/uL (140-400) Sodium Level 142 mmol/L (136-145) Potassium Level 4.2 mmol/L (3.5-5.1) Chloride Level 103 mmol/L (98-107) Carbon Dioxide Level 32 mmol/L (21-32) Anion Gap 7 (6-14) Blood Urea Nitrogen 12 mg/dL (8-26) Creatinine 0.9 mg/dL (0.7-1.3) Estimated GFR (Cockcroft-Gault) 88.3 BUN/Creatinine Ratio 13 (6-20) Glucose Level 101 mg/dL (70-99) H Calcium Level 9.2 mg/dL (8.5-10.1) Magnesium Level 2.2 mg/dL (1.8-2.4) Total Bilirubin 0.6 mg/dL (0.2-1.0) Aspartate Amino Transferase (AST) 30 U/L (15-37) Alanine Aminotransferase (ALT) 33 U/L (16-63) Alkaline Phosphatase 87 U/L (46-116) Total Protein 7.7 g/dL (6.4-8.2) Albumin 4.0 g/dL (3.4-5.0) Albumin/Globulin Ratio 1.1 (1.0-1.7) Valproic Acid Level 19 mcg/mL (50-100) L Valproic Acid Last Dose Date 12/28/16 Valproic Acid Last Dose Time 2100 Current Medications: Meds: Current Medications Multi-Ingredient Ointment (Analgesic [place]) 1 mary PRN QID PRN TP MUSCLE PAIN; Start 12/25/16 at 00:00 Al Hydroxide/Mg Hydroxide (Mylanta Plus Xs) 15 ml PRN AFTMEALHC PRN PO DYSPEPSIA; Start 12/25/16 at 00:00 Magnesium Hydroxide (Milk Of Magnesia) 2,400 mg PRN QHS PRN PO CONSTIPATION; Start 12/25/16 at 00:00 Acetaminophen (Tylenol) 650 mg PRN Q6HRS PRN PO PAIN; Start 12/25/16 at 00:30 Alprazolam (Xanax) 0.25 mg DAILY PO Last administered on 12/29/16 09:03; Start 12/25/16 at 09:00 Alprazolam (Xanax) 0.25 mg PRN Q6HRS PRN PO ANXIETY / AGITATION; Start at 00:30 Docusate Sodium (Colace) 100 mg DAILY PO Last administered on 12/29/16 09:02 ; Start 12/25/16 at 09:00 Gabapentin (Neurontin) 100 mg TID PO Last administered on 12/29/16 20:55; Start 12/25/16 at 09:00 Levothyroxine Sodium (Synthroid) 112 mcg DAILY06 PO Last administered on 05:39; Start 12/25/16 at 06:00; Stop 12/26/16 at 15:10; Status DC Memantine (Namenda) 10 mg BID PO Last administered on 12/29/16 20:55; Start 12/25/16 at 09:00 Olanzapine (ZyPREXA) 2.5 mg BID PO Last administered on 12/29/16 20:56; Start 12/25/16 at 09:00 Sertraline HCl (Zoloft) 150 mg DAILY PO Last administered on 12/29/16 09:03; Start 12/25/16 at 09:00 Trazodone HCl (Desyrel) 75 mg HS PO Last administered on 12/29/16 20:56; Start 12/25/16 at 21:00 Potassium Chloride (Klor-Con) 20 meq BID PO Last administered on 12/29/16 20: 56; Start 12/25/16 at 21:00 Quetiapine Fumarate (SEROquel) 25 mg QHS PO Last administered on 12/29/16 20: 55; Start 12/25/16 at 21:00 Levothyroxine Sodium (Synthroid) 137 mcg DAILY06 PO Last administered on 05:40; Start 12/27/16 at 06:00 Divalproex Sodium (Depakote Sprinkles) 125 mg BID92 PO Last administered on 14:23; Start 12/27/16 at 09:00 Active Scripts Active Reported Alprazolam 0.25 Mg Tablet 0.25 Mg PO PRN Q6HRS PRN Tylenol (Acetaminophen) 325 Mg Tablet 2 Tab PO PRN Q6HRS PRN Trazodone Hcl 50 Mg Tablet 75 Mg PO HS Sertraline Hcl 100 Mg Tablet 150 Mg PO DAILY Zyprexa (Olanzapine) 2.5 Mg Tablet 2.5 Mg PO BID Namenda (Memantine Hcl) 10 Mg Tablet 10 Mg PO BID Synthroid (Levothyroxine Sodium) 112 Mcg Tablet 112 Mcg PO DAILYAC Gabapentin 100 Mg Capsule 100 Mg PO TID Colace (Docusate Sodium) 100 Mg Capsule 100 Mg PO DAILY Alprazolam 0.25 Mg Tablet 0.25 Mg PO DAILY14 Diagnosis: Problems: (1) Medical clearance for psychiatric admission (2) Anxiety disorder (3) Dementia, vascular, with delusions (4) Dementia, vascular, with depression (5) Dementia in Alzheimer's disease with depression (6) Dementia in Alzheimer's disease with delusions (7) Impulse control disorder LETICIA GUERRA MD Dec 29, 2016 21:57
--- NOTE | 2016-12-30 01:46 | PN ---
DATE: 12/28/2016 This late entry for 12/28/2016 covers elements not covered in my initial note of 12/28/2016. SUBJECTIVE: I met with the patient the evening of 12/28/2016. The patient remains confused, cooperative, appears happy, smiling, appetite is fair, slept 6-3/4 hours, gets a little anxious, paranoid at times, but not aggressive. Family came to visit him, stays out in the day room and went outside for activities. REVIEW OF SYSTEMS: No CV, , pulmonary, eye, ENT system symptoms on review. Reliability poor. MENTAL STATUS EXAMINATION: Oriented to himself. Insight, judgment, recent and remote memory, attention, concentration, fund of knowledge poor, consistent with his diagnosis mentioned in my initial note. PLAN: Continue current psychotropics. Reviewed drug interactions. . Risk/benefit ratio favors no further change. MAN Nilda GUERRA MD DR: WENDY/evie JOB#: [id number] / [id number]
[2016-12-30] MEDS: LEVOTHYROXINE 137 MCG TABLET PO SCH (05:33)
[2016-12-30 06:15] VITALS: BP 113/89
[2016-12-30] MEDS: DIVALPROEX 125 MG CAP.SPRINK PO SCH ×2 (09:05→13:55)
[2016-12-30] MEDS: DOCUSATE SODIUM 100 MG CAPSULE PO SCH (09:05)
[2016-12-30] MEDS: POTASSIUM CHLORIDE 20 MEQ TABLET.ER. PO SCH ×2 (09:05→20:15)
[2016-12-30] MEDS: OLANZapine 2.5 MG TABLET PO SCH ×2 (09:06→20:15)
[2016-12-30] MEDS: SERTRALINE 50 MG TABLET. PO SCH (09:06)
[2016-12-30] MEDS: ALPRAZolam 0.25 MG TABLET PO SCH (09:06)
[2016-12-30] MEDS: GABAPENTIN 100 MG CAPSULE. PO SCH ×3 (09:06→20:14)
[2016-12-30] MEDS: MEMANTINE 10 MG TABLET. PO SCH ×2 (09:06→20:15)
--- NOTE | 2016-12-30 10:06 | PN ---
DATE: 12/29/2016 PSYCHIATRIC PROGRESS NOTE This is a late entry 12/29/2016, covers elements not covered in my initial note of 12/29/2016. SUBJECTIVE: I met with the patient evening 12/29/2016. The patient remains confused, otherwise pleasant, cooperative, not very interactive, but smiling. REVIEW OF SYSTEMS: No CV, , pulmonary, eye, ENT system symptoms on review. Reliability poor. MENTAL STATUS EXAM: Oriented to himself. Insight, judgment, recent and remote memory, attention, concentration, fund of knowledge poor, consistent with his diagnoses mentioned in my initial note. PLAN: Continue current psychotropics mentioned in my initial note. Review drug interactions. Risk/benefit ratio favors no further change. MAN Nilda GUERRA MD DR: WENDY/evie JOB#: [id number] / [id number]
[2016-12-30 16:23] VITALS: BP 105/66
[2016-12-30] MEDS: traZODone 50 MG TABLET. PO SCH (20:14)
[2016-12-30] MEDS: QUEtiapine 25 MG TABLET. PO SCH (20:15)
--- NOTE | 2016-12-30 20:57 | PDOC ---
Exam Hiram Demential Exam: Hiram Note: Please also refer to the separate dictated note~for this date of service dictated separately.~Patient seen individually. Discussed the patient with Nursing staff reviewed the chart.~Reviewed interim history and current functioning. Reviewed vital signs,~Labs/ Radiology~and current medications noted below. Continue current treatment with the changes noted in the dictated addendum note Assessment: Vital Signs: Vital Signs Date Time Temp Pulse Resp B/P (MAP) Pulse Ox O2 Delivery O2 Flow Rate FiO2 12/30/16 16:23 98.8 88 16 105/66 (79) 100 Room Air I&O Intake and Output 12/31/16 07:00 Intake Total 720 ml Balance 720 ml Intake Oral 720 ml Current Medications: Meds: Current Medications Multi-Ingredient Ointment (Analgesic [place]) 1 mary PRN QID PRN TP MUSCLE PAIN; Start 12/25/16 at 00:00 Al Hydroxide/Mg Hydroxide (Mylanta Plus Xs) 15 ml PRN AFTMEALHC PRN PO DYSPEPSIA; Start 12/25/16 at 00:00 Magnesium Hydroxide (Milk Of Magnesia) 2,400 mg PRN QHS PRN PO CONSTIPATION; Start 12/25/16 at 00:00 Acetaminophen (Tylenol) 650 mg PRN Q6HRS PRN PO PAIN; Start 12/25/16 at 00:30 Alprazolam (Xanax) 0.25 mg DAILY PO Last administered on 12/30/16 09:06; Start 12/25/16 at 09:00 Alprazolam (Xanax) 0.25 mg PRN Q6HRS PRN PO ANXIETY / AGITATION; Start at 00:30 Docusate Sodium (Colace) 100 mg DAILY PO Last administered on 12/30/16 09:05 ; Start 12/25/16 at 09:00 Gabapentin (Neurontin) 100 mg TID PO Last administered on 12/30/16 20:14; Start 12/25/16 at 09:00 Levothyroxine Sodium (Synthroid) 112 mcg DAILY06 PO Last administered on 05:39; Start 12/25/16 at 06:00; Stop 12/26/16 at 15:10; Status DC Memantine (Namenda) 10 mg BID PO Last administered on 12/30/16 20:15; Start 12/25/16 at 09:00 Olanzapine (ZyPREXA) 2.5 mg BID PO Last administered on 12/30/16 20:15; Start 12/25/16 at 09:00 Sertraline HCl (Zoloft) 150 mg DAILY PO Last administered on 12/30/16 09:06; Start 12/25/16 at 09:00 Trazodone HCl (Desyrel) 75 mg HS PO Last administered on 12/30/16 20:14; Start 12/25/16 at 21:00 Potassium Chloride (Klor-Con) 20 meq BID PO Last administered on 12/30/16 20: 15; Start 12/25/16 at 21:00 Quetiapine Fumarate (SEROquel) 25 mg QHS PO Last administered on 12/30/16 20: 15; Start 12/25/16 at 21:00 Levothyroxine Sodium (Synthroid) 137 mcg DAILY06 PO Last administered on 05:33; Start 12/27/16 at 06:00 Divalproex Sodium (Depakote Sprinkles) 125 mg BID92 PO Last administered on 13:55; Start 12/27/16 at 09:00 Active Scripts Active Reported Alprazolam 0.25 Mg Tablet 0.25 Mg PO PRN Q6HRS PRN Tylenol (Acetaminophen) 325 Mg Tablet 2 Tab PO PRN Q6HRS PRN Trazodone Hcl 50 Mg Tablet 75 Mg PO HS Sertraline Hcl 100 Mg Tablet 150 Mg PO DAILY Zyprexa (Olanzapine) 2.5 Mg Tablet 2.5 Mg PO BID Namenda (Memantine Hcl) 10 Mg Tablet 10 Mg PO BID Synthroid (Levothyroxine Sodium) 112 Mcg Tablet 112 Mcg PO DAILYAC Gabapentin 100 Mg Capsule 100 Mg PO TID Colace (Docusate Sodium) 100 Mg Capsule 100 Mg PO DAILY Alprazolam 0.25 Mg Tablet 0.25 Mg PO DAILY14 Diagnosis: Problems: (1) Anxiety disorder (2) Dementia, vascular, with delusions (3) Dementia, vascular, with depression (4) Dementia in Alzheimer's disease with depression (5) Dementia in Alzheimer's disease with delusions (6) Impulse control disorder LETICIA GUERRA MD Dec 30, 2016 20:57
[2016-12-31] MEDS: LEVOTHYROXINE 137 MCG TABLET PO SCH (05:39)
[2016-12-31 07:26] VITALS: BP_SYST 106; BP_SYST 142; BP_DIAS 72; BP_DIAS 79
[2016-12-31] MEDS: GABAPENTIN 100 MG CAPSULE. PO SCH ×3 (08:27→20:05)
[2016-12-31] MEDS: DIVALPROEX 125 MG CAP.SPRINK PO SCH ×2 (08:27→13:52)
[2016-12-31] MEDS: ALPRAZolam 0.25 MG TABLET PO SCH (08:27)
[2016-12-31] MEDS: MEMANTINE 10 MG TABLET. PO SCH ×2 (08:27→20:05)
[2016-12-31] MEDS: POTASSIUM CHLORIDE 20 MEQ TABLET.ER. PO SCH ×2 (08:27→20:05)
[2016-12-31] MEDS: DOCUSATE SODIUM 100 MG CAPSULE PO SCH (08:27)
[2016-12-31] MEDS: OLANZapine 2.5 MG TABLET PO SCH ×2 (08:28→20:05)
[2016-12-31] MEDS: SERTRALINE 50 MG TABLET. PO SCH (08:28)
[2016-12-31 16:19] VITALS: BP 105/74
[2016-12-31] MEDS: traZODone 50 MG TABLET. PO SCH (20:05)
[2016-12-31] MEDS: QUEtiapine 25 MG TABLET. PO SCH (20:07)
--- NOTE | 2016-12-31 21:33 | PDOC ---
Exam Hiram Demential Exam: Hiram Note: Please also refer to the separate dictated note~for this date of service dictated separately.~Patient seen individually. Discussed the patient with Nursing staff reviewed the chart.~Reviewed interim history and current functioning. Reviewed vital signs,~Labs/ Radiology~and current medications noted below. Continue current treatment with the changes noted in the dictated addendum note Assessment: Vital Signs: Vital Signs Date Time Temp Pulse Resp B/P (MAP) Pulse Ox O2 Delivery O2 Flow Rate FiO2 12/31/16 16:19 98.2 100 20 105/74 (84) 98 Room Air I&O Intake and Output 01/01/17 07:00 Intake Total 1200 ml Balance 1200 ml Intake Oral 1200 ml Current Medications: Meds: Current Medications Multi-Ingredient Ointment (Analgesic [place]) 1 mary PRN QID PRN TP MUSCLE PAIN; Start 12/25/16 at 00:00 Al Hydroxide/Mg Hydroxide (Mylanta Plus Xs) 15 ml PRN AFTMEALHC PRN PO DYSPEPSIA; Start 12/25/16 at 00:00 Magnesium Hydroxide (Milk Of Magnesia) 2,400 mg PRN QHS PRN PO CONSTIPATION; Start 12/25/16 at 00:00 Acetaminophen (Tylenol) 650 mg PRN Q6HRS PRN PO PAIN; Start 12/25/16 at 00:30 Alprazolam (Xanax) 0.25 mg DAILY PO Last administered on 12/31/16 08:27; Start 12/25/16 at 09:00 Alprazolam (Xanax) 0.25 mg PRN Q6HRS PRN PO ANXIETY / AGITATION; Start at 00:30 Docusate Sodium (Colace) 100 mg DAILY PO Last administered on 12/31/16 08:27 ; Start 12/25/16 at 09:00 Gabapentin (Neurontin) 100 mg TID PO Last administered on 12/31/16 20:05; Start 12/25/16 at 09:00 Levothyroxine Sodium (Synthroid) 112 mcg DAILY06 PO Last administered on 05:39; Start 12/25/16 at 06:00; Stop 12/26/16 at 15:10; Status DC Memantine (Namenda) 10 mg BID PO Last administered on 12/31/16 20:05; Start 12/25/16 at 09:00 Olanzapine (ZyPREXA) 2.5 mg BID PO Last administered on 12/31/16 20:05; Start 12/25/16 at 09:00 Sertraline HCl (Zoloft) 150 mg DAILY PO Last administered on 12/31/16 08:28; Start 12/25/16 at 09:00 Trazodone HCl (Desyrel) 75 mg HS PO Last administered on 12/31/16 20:05; Start 12/25/16 at 21:00 Potassium Chloride (Klor-Con) 20 meq BID PO Last administered on 12/31/16 20: 05; Start 12/25/16 at 21:00 Quetiapine Fumarate (SEROquel) 25 mg QHS PO Last administered on 12/31/16 20: 07; Start 12/25/16 at 21:00 Levothyroxine Sodium (Synthroid) 137 mcg DAILY06 PO Last administered on 05:39; Start 12/27/16 at 06:00 Divalproex Sodium (Depakote Sprinkles) 125 mg BID92 PO Last administered on 13:52; Start 12/27/16 at 09:00 Active Scripts Active Reported Alprazolam 0.25 Mg Tablet 0.25 Mg PO PRN Q6HRS PRN Tylenol (Acetaminophen) 325 Mg Tablet 2 Tab PO PRN Q6HRS PRN Trazodone Hcl 50 Mg Tablet 75 Mg PO HS Sertraline Hcl 100 Mg Tablet 150 Mg PO DAILY Zyprexa (Olanzapine) 2.5 Mg Tablet 2.5 Mg PO BID Namenda (Memantine Hcl) 10 Mg Tablet 10 Mg PO BID Synthroid (Levothyroxine Sodium) 112 Mcg Tablet 112 Mcg PO DAILYAC Gabapentin 100 Mg Capsule 100 Mg PO TID Colace (Docusate Sodium) 100 Mg Capsule 100 Mg PO DAILY Alprazolam 0.25 Mg Tablet 0.25 Mg PO DAILY14 Diagnosis: Problems: (1) Medical clearance for psychiatric admission (2) Anxiety disorder (3) Dementia, vascular, with delusions (4) Dementia, vascular, with depression (5) Dementia in Alzheimer's disease with depression (6) Dementia in Alzheimer's disease with delusions (7) Impulse control disorder LETICIA GUERRA MD Dec 31, 2016 21:33
--- NOTE | 2016-12-31 22:58 | PN ---
DATE: 12/30/2016 This is a late entry for 12/30/2016 and covers elements not covered in my initial note of 12/30/2016. I met with the patient evening of 12/30/2016. The patient remains confused, oblivious of his surroundings, smiling, pleasant, not aggressive. REVIEW OF SYSTEMS: No CV, , pulmonary, eye, ENT system symptoms on review. Reliability poor. MENTAL STATUS EXAM: Oriented to himself. Insight, judgment, recent and remote memory, attention, concentration, fund of knowledge poor, consistent with his diagnosis mentioned in my initial note. PLAN: Continue current psychotropics mentioned in my initial. Reviewed drug interactions, risk/benefit ratio favors no further change. MAN Nilda GUERRA MD DR: WENDY/evie JOB#: [id number] / [id number]
[2017-01-01] MEDS: LEVOTHYROXINE 137 MCG TABLET PO SCH (06:07)
[2017-01-01] MEDS: MEMANTINE 10 MG TABLET. PO SCH ×2 (08:29→20:34)
[2017-01-01] MEDS: POTASSIUM CHLORIDE 20 MEQ TABLET.ER. PO SCH ×2 (08:29→20:35)
[2017-01-01] MEDS: OLANZapine 2.5 MG TABLET PO SCH ×2 (08:30→20:34)
[2017-01-01] MEDS: DOCUSATE SODIUM 100 MG CAPSULE PO SCH (08:30)
[2017-01-01] MEDS: SERTRALINE 50 MG TABLET. PO SCH (08:30)
[2017-01-01] MEDS: GABAPENTIN 100 MG CAPSULE. PO SCH ×3 (08:30→20:34)
[2017-01-01] MEDS: DIVALPROEX 125 MG CAP.SPRINK PO SCH ×2 (08:30→15:01)
[2017-01-01] MEDS: ALPRAZolam 0.25 MG TABLET PO SCH (08:30)
[2017-01-01 08:32] VITALS: BP 120/82
[2017-01-01 16:11] VITALS: BP 111/61
--- NOTE | 2017-01-01 20:31 | PDOC ---
Exam Hiram Demential Exam: Hiram Note: Please also refer to the separate dictated note~for this date of service dictated separately.~Patient seen individually. Discussed the patient with Nursing staff reviewed the chart.~Reviewed interim history and current functioning. Reviewed vital signs,~Labs/ Radiology~and current medications noted below. Continue current treatment with the changes noted in the dictated addendum note Assessment: Vital Signs: Vital Signs Date Time Temp Pulse Resp B/P (MAP) Pulse Ox O2 Delivery O2 Flow Rate FiO2 01/01/17 16:11 97.6 91 16 111/61 (78) 98 12/31/16 16:19 Room Air I&O Intake and Output 01/02/17 07:00 Intake Total 1080 ml Balance 1080 ml Intake Oral 1080 ml Current Medications: Meds: Current Medications Multi-Ingredient Ointment (Analgesic [place]) 1 mary PRN QID PRN TP MUSCLE PAIN; Start 12/25/16 at 00:00 Al Hydroxide/Mg Hydroxide (Mylanta Plus Xs) 15 ml PRN AFTMEALHC PRN PO DYSPEPSIA; Start 12/25/16 at 00:00 Magnesium Hydroxide (Milk Of Magnesia) 2,400 mg PRN QHS PRN PO CONSTIPATION Last administered on 01/01/17 08:41; Start 12/25/16 at 00:00 Acetaminophen (Tylenol) 650 mg PRN Q6HRS PRN PO PAIN; Start 12/25/16 at 00:30 Alprazolam (Xanax) 0.25 mg DAILY PO Last administered on 01/01/17 08:30; Start 12/25/16 at 09:00 Alprazolam (Xanax) 0.25 mg PRN Q6HRS PRN PO ANXIETY / AGITATION; Start at 00:30 Docusate Sodium (Colace) 100 mg DAILY PO Last administered on 01/01/17 08:30 ; Start 12/25/16 at 09:00 Gabapentin (Neurontin) 100 mg TID PO Last administered on 01/01/17 15:02; Start 12/25/16 at 09:00 Levothyroxine Sodium (Synthroid) 112 mcg DAILY06 PO Last administered on 05:39; Start 12/25/16 at 06:00; Stop 12/26/16 at 15:10; Status DC Memantine (Namenda) 10 mg BID PO Last administered on 01/01/17 08:29; Start 12/25/16 at 09:00 Olanzapine (ZyPREXA) 2.5 mg BID PO Last administered on 01/01/17 08:30; Start 12/25/16 at 09:00 Sertraline HCl (Zoloft) 150 mg DAILY PO Last administered on 01/01/17 08:30; Start 12/25/16 at 09:00 Trazodone HCl (Desyrel) 75 mg HS PO Last administered on 12/31/16 20:05; Start 12/25/16 at 21:00 Potassium Chloride (Klor-Con) 20 meq BID PO Last administered on 01/01/17 08: 29; Start 12/25/16 at 21:00 Quetiapine Fumarate (SEROquel) 25 mg QHS PO Last administered on 12/31/16 20: 07; Start 12/25/16 at 21:00 Levothyroxine Sodium (Synthroid) 137 mcg DAILY06 PO Last administered on 06:07; Start 12/27/16 at 06:00 Divalproex Sodium (Depakote Sprinkles) 125 mg BID92 PO Last administered on 15:01; Start 12/27/16 at 09:00 Active Scripts Active Reported Alprazolam 0.25 Mg Tablet 0.25 Mg PO PRN Q6HRS PRN Tylenol (Acetaminophen) 325 Mg Tablet 2 Tab PO PRN Q6HRS PRN Trazodone Hcl 50 Mg Tablet 75 Mg PO HS Sertraline Hcl 100 Mg Tablet 150 Mg PO DAILY Zyprexa (Olanzapine) 2.5 Mg Tablet 2.5 Mg PO BID Namenda (Memantine Hcl) 10 Mg Tablet 10 Mg PO BID Synthroid (Levothyroxine Sodium) 112 Mcg Tablet 112 Mcg PO DAILYAC Gabapentin 100 Mg Capsule 100 Mg PO TID Colace (Docusate Sodium) 100 Mg Capsule 100 Mg PO DAILY Alprazolam 0.25 Mg Tablet 0.25 Mg PO DAILY14 Diagnosis: Problems: (1) Anxiety disorder (2) Dementia, vascular, with delusions (3) Dementia, vascular, with depression (4) Dementia in Alzheimer's disease with depression (5) Dementia in Alzheimer's disease with delusions (6) Impulse control disorder LETICIA GUERRA MD Jan 01, 2017 20:31
[2017-01-01] MEDS: traZODone 50 MG TABLET. PO SCH (20:34)
[2017-01-01] MEDS: QUEtiapine 25 MG TABLET. PO SCH (20:34)
--- NOTE | 2017-01-02 03:16 | PN ---
DATE: 12/31/2016 PSYCHIATRIC PROGRESS NOTE This late entry 12/31/2016 covers elements not covered in my initial note of 12/31/2016. SUBJECTIVE: I met with the patient in the evening of 12/31/2016. The patient remains confused, pleasant, smiling, not aggressive. REVIEW OF SYSTEMS: No CV, , pulmonary, eye, ENT system symptoms on review. Ambulation impaired with a walker. MENTAL STATUS EXAM: Oriented to himself. Insight, judgment, recent and remote memory, attention, concentration, fund of knowledge poor, consistent with his diagnosis mentioned in my initial note. PLAN: Continue current psychotropics mentioned in my initial note. Review drug interactions, risk/benefit ratio favors no further change. MAN Nilda GUERRA MD DR: WENDY/evie JOB#: [id number] / [id number]
[2017-01-02] MEDS: LEVOTHYROXINE 137 MCG TABLET PO SCH (05:58)
[2017-01-02 06:04] VITALS: BP 114/83
[2017-01-02] MEDS: DIVALPROEX 125 MG CAP.SPRINK PO SCH ×2 (08:23→14:16)
[2017-01-02] MEDS: GABAPENTIN 100 MG CAPSULE. PO SCH ×3 (08:23→19:35)
[2017-01-02] MEDS: SERTRALINE 50 MG TABLET. PO SCH (08:23)
[2017-01-02] MEDS: OLANZapine 2.5 MG TABLET PO SCH ×2 (08:23→19:35)
[2017-01-02] MEDS: MEMANTINE 10 MG TABLET. PO SCH ×2 (08:23→19:35)
[2017-01-02] MEDS: DOCUSATE SODIUM 100 MG CAPSULE PO SCH (08:23)
[2017-01-02] MEDS: POTASSIUM CHLORIDE 20 MEQ TABLET.ER. PO SCH ×2 (08:23→19:36)
[2017-01-02] MEDS: ALPRAZolam 0.25 MG TABLET PO SCH (08:24)
[2017-01-02 16:22] VITALS: BP 113/61
[2017-01-02] MEDS: QUEtiapine 25 MG TABLET. PO SCH (19:35)
[2017-01-02] MEDS: traZODone 50 MG TABLET. PO SCH (19:35)
--- NOTE | 2017-01-02 21:01 | PDOC ---
Exam Hiram Demential Exam: Hiram Note: Please also refer to the separate dictated note~for this date of service dictated separately.~Patient seen individually. Discussed the patient with Nursing staff reviewed the chart.~Reviewed interim history and current functioning. Reviewed vital signs,~Labs/ Radiology~and current medications noted below. Continue current treatment with the changes noted in the dictated addendum note Assessment: Vital Signs: Vital Signs Date Time Temp Pulse Resp B/P (MAP) Pulse Ox O2 Delivery O2 Flow Rate FiO2 01/02/17 16:22 97.5 93 18 113/61 (78) 96 12/31/16 16:19 Room Air I&O Intake and Output 01/03/17 06:59 Intake Total 480 ml Balance 480 ml Intake Oral 480 ml Current Medications: Meds: Current Medications Multi-Ingredient Ointment (Analgesic [place]) 1 mary PRN QID PRN TP MUSCLE PAIN; Start 12/25/16 at 00:00 Al Hydroxide/Mg Hydroxide (Mylanta Plus Xs) 15 ml PRN AFTMEALHC PRN PO DYSPEPSIA; Start 12/25/16 at 00:00 Magnesium Hydroxide (Milk Of Magnesia) 2,400 mg PRN QHS PRN PO CONSTIPATION Last administered on 01/01/17 08:41; Start 12/25/16 at 00:00 Acetaminophen (Tylenol) 650 mg PRN Q6HRS PRN PO PAIN; Start 12/25/16 at 00:30 Alprazolam (Xanax) 0.25 mg DAILY PO Last administered on 01/02/17 08:24; Start 12/25/16 at 09:00 Alprazolam (Xanax) 0.25 mg PRN Q6HRS PRN PO ANXIETY / AGITATION; Start at 00:30 Docusate Sodium (Colace) 100 mg DAILY PO Last administered on 01/02/17 08:23 ; Start 12/25/16 at 09:00 Gabapentin (Neurontin) 100 mg TID PO Last administered on 01/02/17 19:35; Start 12/25/16 at 09:00 Levothyroxine Sodium (Synthroid) 112 mcg DAILY06 PO Last administered on 05:39; Start 12/25/16 at 06:00; Stop 12/26/16 at 15:10; Status DC Memantine (Namenda) 10 mg BID PO Last administered on 01/02/17 19:35; Start 12/25/16 at 09:00 Olanzapine (ZyPREXA) 2.5 mg BID PO Last administered on 01/02/17 19:35; Start 12/25/16 at 09:00 Sertraline HCl (Zoloft) 150 mg DAILY PO Last administered on 01/02/17 08:23; Start 12/25/16 at 09:00 Trazodone HCl (Desyrel) 75 mg HS PO Last administered on 01/02/17 19:35; Start 12/25/16 at 21:00 Potassium Chloride (Klor-Con) 20 meq BID PO Last administered on 01/02/17 19: 36; Start 12/25/16 at 21:00 Quetiapine Fumarate (SEROquel) 25 mg QHS PO Last administered on 01/02/17 19: 35; Start 12/25/16 at 21:00 Levothyroxine Sodium (Synthroid) 137 mcg DAILY06 PO Last administered on 05:58; Start 12/27/16 at 06:00 Divalproex Sodium (Depakote Sprinkles) 125 mg BID92 PO Last administered on 14:16; Start 12/27/16 at 09:00 Active Scripts Active Reported Alprazolam 0.25 Mg Tablet 0.25 Mg PO PRN Q6HRS PRN Tylenol (Acetaminophen) 325 Mg Tablet 2 Tab PO PRN Q6HRS PRN Trazodone Hcl 50 Mg Tablet 75 Mg PO HS Sertraline Hcl 100 Mg Tablet 150 Mg PO DAILY Zyprexa (Olanzapine) 2.5 Mg Tablet 2.5 Mg PO BID Namenda (Memantine Hcl) 10 Mg Tablet 10 Mg PO BID Synthroid (Levothyroxine Sodium) 112 Mcg Tablet 112 Mcg PO DAILYAC Gabapentin 100 Mg Capsule 100 Mg PO TID Colace (Docusate Sodium) 100 Mg Capsule 100 Mg PO DAILY Alprazolam 0.25 Mg Tablet 0.25 Mg PO DAILY14 Diagnosis: Problems: (1) Anxiety disorder (2) Dementia, vascular, with delusions (3) Dementia, vascular, with depression (4) Dementia in Alzheimer's disease with depression (5) Dementia in Alzheimer's disease with delusions (6) Impulse control disorder LETICIA GUERRA MD Jan 02, 2017 21:01
[2017-01-03] MEDS ORDERED: POTA20TA4 PO (03:02)
[2017-01-03] MEDS ORDERED: DIVA125C3 PO (03:02)
[2017-01-03] MEDS ORDERED: LEVO137T3 PO (03:02)
[2017-01-03] MEDS ORDERED: QUET25TA5 PO (03:02)
--- NOTE | 2017-01-03 03:29 | PN ---
DATE: 01/01/2017 This is a late entry for 01/01/2017 and covers the elements not covered in my initial note of 01/01/2017. SUBJECTIVE: I met with the patient evening of 01/01/2017. Overall, the patient remains confused, disorganized, pleasant, smiling, not aggressive. REVIEW OF SYSTEMS: No CV, , pulmonary, eye, ENT system symptoms on review. Reliability poor. MENTAL STATUS EXAM: Oriented to himself. Insight, judgment, recent and remote memory, attention, concentration, fund of knowledge poor, consistent with his diagnosis mentioned in my initial note. PLAN: Continue current psychotropics. Review drug interactions. Risk/benefit ratio favors no further change. LETICIA GUERRA MD DR: WENDY/evie JOB#: [id number] / [id number]
[2017-01-03] MEDS: LEVOTHYROXINE 137 MCG TABLET PO SCH (06:08)
[2017-01-03 06:40] VITALS: BP 114/81
[2017-01-03] MEDS: SERTRALINE 50 MG TABLET. PO SCH (08:53)
[2017-01-03] MEDS: OLANZapine 2.5 MG TABLET PO SCH ×2 (08:53→19:32)
[2017-01-03] MEDS: DIVALPROEX 125 MG CAP.SPRINK PO SCH ×2 (08:53→14:10)
[2017-01-03] MEDS: POTASSIUM CHLORIDE 20 MEQ TABLET.ER. PO SCH ×2 (08:53→19:31)
[2017-01-03] MEDS: GABAPENTIN 100 MG CAPSULE. PO SCH ×3 (08:53→19:32)
[2017-01-03] MEDS: DOCUSATE SODIUM 100 MG CAPSULE PO SCH (08:53)
[2017-01-03] MEDS: MEMANTINE 10 MG TABLET. PO SCH ×2 (08:53→19:31)
[2017-01-03] MEDS: ALPRAZolam 0.25 MG TABLET PO SCH (08:55)
[2017-01-03 16:25] VITALS: BP 109/67
[2017-01-03] MEDS: traZODone 50 MG TABLET. PO SCH (19:31)
[2017-01-03] MEDS: QUEtiapine 25 MG TABLET. PO SCH (19:32)
--- NOTE | 2017-01-03 21:04 | PDOC ---
Exam Hiram Demential Exam: Hiram Note: Please also refer to the separate dictated note~for this date of service dictated separately.~Patient seen individually. Discussed the patient with Nursing staff reviewed the chart.~Reviewed interim history and current functioning. Reviewed vital signs,~Labs/ Radiology~and current medications noted below. Continue current treatment with the changes noted in the dictated addendum note Assessment: Vital Signs: Vital Signs Date Time Temp Pulse Resp B/P (MAP) Pulse Ox O2 Delivery O2 Flow Rate FiO2 01/03/17 16:25 98.6 97 18 109/67 (81) 97 12/31/16 16:19 Room Air I&O Intake and Output 01/04/17 07:00 Intake Total 720 ml Balance 720 ml Intake Oral 720 ml # Bowel Movements 1 Current Medications: Meds: Current Medications Multi-Ingredient Ointment (Analgesic [place]) 1 mary PRN QID PRN TP MUSCLE PAIN; Start 12/25/16 at 00:00 Al Hydroxide/Mg Hydroxide (Mylanta Plus Xs) 15 ml PRN AFTMEALHC PRN PO DYSPEPSIA; Start 12/25/16 at 00:00 Magnesium Hydroxide (Milk Of Magnesia) 2,400 mg PRN QHS PRN PO CONSTIPATION Last administered on 01/01/17 08:41; Start 12/25/16 at 00:00 Acetaminophen (Tylenol) 650 mg PRN Q6HRS PRN PO PAIN; Start 12/25/16 at 00:30 Alprazolam (Xanax) 0.25 mg DAILY PO Last administered on 01/03/17 08:55; Start 12/25/16 at 09:00 Alprazolam (Xanax) 0.25 mg PRN Q6HRS PRN PO ANXIETY / AGITATION; Start at 00:30 Docusate Sodium (Colace) 100 mg DAILY PO Last administered on 01/03/17 08:53 ; Start 12/25/16 at 09:00 Gabapentin (Neurontin) 100 mg TID PO Last administered on 01/03/17 19:32; Start 12/25/16 at 09:00 Levothyroxine Sodium (Synthroid) 112 mcg DAILY06 PO Last administered on 05:39; Start 12/25/16 at 06:00; Stop 12/26/16 at 15:10; Status DC Memantine (Namenda) 10 mg BID PO Last administered on 01/03/17 19:31; Start 12/25/16 at 09:00 Olanzapine (ZyPREXA) 2.5 mg BID PO Last administered on 01/03/17 19:32; Start 12/25/16 at 09:00 Sertraline HCl (Zoloft) 150 mg DAILY PO Last administered on 01/03/17 08:53; Start 12/25/16 at 09:00 Trazodone HCl (Desyrel) 75 mg HS PO Last administered on 01/03/17 19:31; Start 12/25/16 at 21:00 Potassium Chloride (Klor-Con) 20 meq BID PO Last administered on 01/03/17 19: 31; Start 12/25/16 at 21:00 Quetiapine Fumarate (SEROquel) 25 mg QHS PO Last administered on 01/03/17 19: 32; Start 12/25/16 at 21:00 Levothyroxine Sodium (Synthroid) 137 mcg DAILY06 PO Last administered on 06:08; Start 12/27/16 at 06:00 Divalproex Sodium (Depakote Sprinkles) 125 mg BID92 PO Last administered on 14:10; Start 12/27/16 at 09:00 Active Scripts Active Reported Seroquel (Quetiapine Fumarate) 25 Mg Tablet 25 Mg PO QHS Klor-Con M20 (Potassium Chloride) 20 Meq Tab.er.prt 20 Meq PO BID Levothyroxine Sodium 137 Mcg Tablet 137 Mcg PO DAILYAC Divalproex Sodium 125 Mg Cap.sprink 125 Mg PO BID92 Alprazolam 0.25 Mg Tablet 0.25 Mg PO PRN Q6HRS PRN Tylenol (Acetaminophen) 325 Mg Tablet 2 Tab PO PRN Q6HRS PRN Trazodone Hcl 50 Mg Tablet 75 Mg PO HS Sertraline Hcl 100 Mg Tablet 150 Mg PO DAILY Zyprexa (Olanzapine) 2.5 Mg Tablet 2.5 Mg PO BID Namenda (Memantine Hcl) 10 Mg Tablet 10 Mg PO BID Gabapentin 100 Mg Capsule 100 Mg PO TID Colace (Docusate Sodium) 100 Mg Capsule 100 Mg PO DAILY Alprazolam 0.25 Mg Tablet 0.25 Mg PO DAILY14 Diagnosis: Problems: (1) Anxiety disorder (2) Dementia, vascular, with delusions (3) Dementia, vascular, with depression (4) Dementia in Alzheimer's disease with depression (5) Dementia in Alzheimer's disease with delusions (6) Impulse control disorder LETICIA GUERRA MD Jan 03, 2017 21:04
[2017-01-04 06:04] VITALS: BP 125/73
[2017-01-04] MEDS: LEVOTHYROXINE 137 MCG TABLET PO SCH (06:05)
--- NOTE | 2017-01-04 06:11 | PN ---
DATE: 01/02/2017 This late entry 01/02/2017 covers elements not covered in my initial note of 01/02/2017. Met with the patient evening of 01/02/2017. Overall, the patient remains confused, but quite pleasant, cooperative, not aggressive. REVIEW OF SYSTEMS: No CV, , pulmonary, eye, ENT system symptoms on review. Reliability poor. MENTAL STATUS EXAM: Oriented to himself. Insight, judgment, recent and remote memory, attention, concentration, fund of knowledge poor, consistent with his diagnosis mentioned in my initial note. PLAN: Continue current psychotropics. Reviewed drug interactions. Risk/benefit ratio favors no further change. MAN Nilda GUERRA MD DR: WENDY/evie JOB#: [id number] / [id number]
[2017-01-04] MEDS: MEMANTINE 10 MG TABLET. PO SCH ×2 (08:17→20:20)
[2017-01-04] MEDS: GABAPENTIN 100 MG CAPSULE. PO SCH ×3 (08:17→20:20)
[2017-01-04] MEDS: POTASSIUM CHLORIDE 20 MEQ TABLET.ER. PO SCH ×2 (08:18→20:19)
[2017-01-04] MEDS: OLANZapine 2.5 MG TABLET PO SCH ×2 (08:18→20:19)
[2017-01-04] MEDS: SERTRALINE 50 MG TABLET. PO SCH (08:18)
[2017-01-04] MEDS: DIVALPROEX 125 MG CAP.SPRINK PO SCH ×2 (08:18→13:10)
[2017-01-04] MEDS: DOCUSATE SODIUM 100 MG CAPSULE PO SCH (08:18)
[2017-01-04] MEDS: ALPRAZolam 0.25 MG TABLET PO SCH (08:19)
[2017-01-04 16:39] VITALS: BP 95/76
[2017-01-04] MEDS: QUEtiapine 25 MG TABLET. PO SCH (20:19)
[2017-01-04] MEDS: traZODone 50 MG TABLET. PO SCH (20:20)
--- NOTE | 2017-01-04 21:00 | PDOC ---
Exam Hiram Demential Exam: Hiram Note: Please also refer to the separate dictated note~for this date of service dictated separately.~Patient seen individually. Discussed the patient with Nursing staff reviewed the chart.~Reviewed interim history and current functioning. Reviewed vital signs,~Labs/ Radiology~and current medications noted below. Continue current treatment with the changes noted in the dictated addendum note Assessment: Vital Signs: Vital Signs Date Time Temp Pulse Resp B/P (MAP) Pulse Ox O2 Delivery O2 Flow Rate FiO2 01/04/17 16:39 97.2 96 16 95/76 (82) 98 12/31/16 16:19 Room Air I&O Intake and Output 01/05/17 07:00 Intake Total 1200 ml Balance 1200 ml Intake Oral 1200 ml Current Medications: Meds: Current Medications Multi-Ingredient Ointment (Analgesic [place]) 1 mary PRN QID PRN TP MUSCLE PAIN; Start 12/25/16 at 00:00 Al Hydroxide/Mg Hydroxide (Mylanta Plus Xs) 15 ml PRN AFTMEALHC PRN PO DYSPEPSIA; Start 12/25/16 at 00:00 Magnesium Hydroxide (Milk Of Magnesia) 2,400 mg PRN QHS PRN PO CONSTIPATION Last administered on 01/01/17 08:41; Start 12/25/16 at 00:00 Acetaminophen (Tylenol) 650 mg PRN Q6HRS PRN PO PAIN; Start 12/25/16 at 00:30 Alprazolam (Xanax) 0.25 mg DAILY PO Last administered on 01/04/17 08:19; Start 12/25/16 at 09:00 Alprazolam (Xanax) 0.25 mg PRN Q6HRS PRN PO ANXIETY / AGITATION Last administered on 01/04/17 10:05; Start 12/25/16 at 00:30 Docusate Sodium (Colace) 100 mg DAILY PO Last administered on 01/04/17 08:18 ; Start 12/25/16 at 09:00 Gabapentin (Neurontin) 100 mg TID PO Last administered on 01/04/17 20:20; Start 12/25/16 at 09:00 Levothyroxine Sodium (Synthroid) 112 mcg DAILY06 PO Last administered on 05:39; Start 12/25/16 at 06:00; Stop 12/26/16 at 15:10; Status DC Memantine (Namenda) 10 mg BID PO Last administered on 01/04/17 20:20; Start 12/25/16 at 09:00 Olanzapine (ZyPREXA) 2.5 mg BID PO Last administered on 01/04/17 20:19; Start 12/25/16 at 09:00 Sertraline HCl (Zoloft) 150 mg DAILY PO Last administered on 01/04/17 08:18; Start 12/25/16 at 09:00 Trazodone HCl (Desyrel) 75 mg HS PO Last administered on 01/04/17 20:20; Start 12/25/16 at 21:00 Potassium Chloride (Klor-Con) 20 meq BID PO Last administered on 01/04/17 20: 19; Start 12/25/16 at 21:00 Quetiapine Fumarate (SEROquel) 25 mg QHS PO Last administered on 01/04/17 20: 19; Start 12/25/16 at 21:00 Levothyroxine Sodium (Synthroid) 137 mcg DAILY06 PO Last administered on 06:05; Start 12/27/16 at 06:00 Divalproex Sodium (Depakote Sprinkles) 125 mg BID92 PO Last administered on 13:10; Start 12/27/16 at 09:00; Stop 01/04/17 at 18:49; Status DC Divalproex Sodium (Depakote Sprinkles) 125 mg TID@0900,1300,1700 PO ; Start at 09:00 Quetiapine Fumarate (SEROquel) 12.5 mg DAILY PO ; Start 01/05/17 at 09:00 Active Scripts Active Reported Seroquel (Quetiapine Fumarate) 25 Mg Tablet 25 Mg PO QHS Klor-Con M20 (Potassium Chloride) 20 Meq Tab.er.prt 20 Meq PO BID Levothyroxine Sodium 137 Mcg Tablet 137 Mcg PO DAILYAC Divalproex Sodium 125 Mg Cap.sprink 125 Mg PO BID92 Alprazolam 0.25 Mg Tablet 0.25 Mg PO PRN Q6HRS PRN Tylenol (Acetaminophen) 325 Mg Tablet 2 Tab PO PRN Q6HRS PRN Trazodone Hcl 50 Mg Tablet 75 Mg PO HS Sertraline Hcl 100 Mg Tablet 150 Mg PO DAILY Zyprexa (Olanzapine) 2.5 Mg Tablet 2.5 Mg PO BID Namenda (Memantine Hcl) 10 Mg Tablet 10 Mg PO BID Gabapentin 100 Mg Capsule 100 Mg PO TID Colace (Docusate Sodium) 100 Mg Capsule 100 Mg PO DAILY Alprazolam 0.25 Mg Tablet 0.25 Mg PO DAILY14 Diagnosis: Problems: (1) Dementia, vascular, with delusions (2) Anxiety disorder (3) Dementia, vascular, with depression (4) Dementia in Alzheimer's disease with depression (5) Dementia in Alzheimer's disease with delusions (6) Impulse control disorder LETICIA GUERRA MD Jan 04, 2017 21:00
--- NOTE | 2017-01-05 04:51 | PN ---
DATE: 01/03/2017 PSYCHIATRIC PROGRESS NOTE This late entry, date of service, 01/03/2017 covers elements not covered in my initial note of 01/03/2017. SUBJECTIVE: I met with the patient in the evening of 01/03/2017 and staffed at a treatment team meeting morning of 01/03/2017. The patient remains confused, but otherwise pleasant, smiling, oblivious of his surroundings, not aggressive. REVIEW OF SYSTEMS: No CV, , pulmonary, eye, ENT system symptoms on review. Reliability poor. MENTAL STATUS EXAM: Oriented to himself. Insight, judgment, recent and remote memory, attention, concentration, fund of knowledge poor, consistent with his diagnosis mentioned in my initial note. PLAN: Continue current psychotropics. Review drug interactions, risk/benefit ratio favors no further change. MAN Nilda GUERRA MD DR: WENDY/evie JOB#: [id number] / [id number]
[2017-01-05] MEDS: LEVOTHYROXINE 137 MCG TABLET PO SCH (05:11)
[2017-01-05 06:03] VITALS: BP 105/64
[2017-01-05] MEDS: DOCUSATE SODIUM 100 MG CAPSULE PO SCH (08:42)
[2017-01-05] MEDS: POTASSIUM CHLORIDE 20 MEQ TABLET.ER. PO SCH ×2 (08:43→20:09)
[2017-01-05] MEDS: GABAPENTIN 100 MG CAPSULE. PO SCH ×3 (08:43→20:08)
[2017-01-05] MEDS: MEMANTINE 10 MG TABLET. PO SCH ×2 (08:43→20:09)
[2017-01-05] MEDS: DIVALPROEX 125 MG CAP.SPRINK PO SCH ×3 (08:43→17:03)
[2017-01-05] MEDS: ALPRAZolam 0.25 MG TABLET PO SCH (08:44)
[2017-01-05] MEDS: SERTRALINE 50 MG TABLET. PO SCH (08:44)
[2017-01-05] MEDS: QUEtiapine 25 MG TABLET. PO SCH ×2 (08:44→20:09)
[2017-01-05] MEDS: OLANZapine 2.5 MG TABLET PO SCH ×2 (08:44→20:09)
[2017-01-05 09:23] LABS: ALBUMIN/GLOBULIN RATIO 1.1 (1.0-1.7); BASO # 0.1 x10^3/uL (0.0-0.2); BASO % 1 % (0-3); CALCIUM 9.4 mg/dL (8.5-10.1); CREATININE 0.9 mg/dL (0.7-1.3); EOS # 0.1 x10^3/uL (0.0-0.7); EOS % 1 % (0-3); GFR 88.3; HEMATOCRIT 44.6 % (39.0-53.0); HEMOGLOBIN 14.8 g/dL (13.0-17.5); LYMPH # 1.9 x10^3/uL (1.0-4.8); LYMPH % 16 % (24-48); MEAN CORPUSCULAR HEMOGLOBIN 31 pg (25-35); MEAN CORPUSCULAR HGB CONC 33 g/dL (31-37); MEAN CORPUSCULAR VOLUME 93 fL (79-100); MONO # 0.9 x10^3/uL (0.0-1.1); MONO % 7 % (0-9); NEUT # 8.9 x10^3uL (1.8-7.7); NEUT % 75 % (31-73); PLATELET COUNT 261 x10^3/uL (140-400); POTASSIUM 4.2 mmol/L (3.5-5.1); RED BLOOD COUNT 4.81 x10^6/uL (4.30-5.70); RED CELL DISTRIBUTION WIDTH 13.4 % (11.5-14.5); TOTAL BILIRUBIN 0.6 mg/dL (0.2-1.0); TOTAL PROTEIN 7.7 g/dL (6.4-8.2); WHITE BLOOD COUNT 11.8 x10^3/uL (4.0-11.0)
[2017-01-05 10:15] LABS: % BASOS 2 % (0-3); % EOS 1 % (0-5); % LYMPHS 16 % (24-48); % MONOS 5 % (0-10); % SEGS 76 % (35-66); PLT ESTIMATE ADEQUATE (ADEQUATE)
[2017-01-05 16:32] VITALS: BP 101/61
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
[2017-01-05] MEDS: traZODone 50 MG TABLET. PO SCH (20:09)
--- NOTE | 2017-01-05 22:05 | PDOC ---
Exam Hiram Demential Exam: Hiram Note: Please also refer to the separate dictated note~for this date of service dictated separately.~Patient seen individually. Discussed the patient with Nursing staff reviewed the chart.~Reviewed interim history and current functioning. Reviewed vital signs,~Labs/ Radiology~and current medications noted below. Continue current treatment with the changes noted in the dictated addendum note Assessment: Vital Signs: Vital Signs Date Time Temp Pulse Resp B/P (MAP) Pulse Ox O2 Delivery O2 Flow Rate FiO2 01/05/17 16:32 97.7 89 18 101/61 (74) 100 01/05/17 06:03 Room Air I&O Intake and Output 01/06/17 07:00 Intake Total 840 ml Balance 840 ml Intake Oral 840 ml Labs: Laboratory Tests Test 01/05/17 09:01 White Blood Count 11.8 x10^3/uL (4.0-11.0) #H Red Blood Count 4.81 x10^6/uL (4.30-5.70) Hemoglobin 14.8 g/dL (13.0-17.5) Hematocrit 44.6 % (39.0-53.0) Mean Corpuscular Volume 93 fL (79-100) Mean Corpuscular Hemoglobin 31 pg (25-35) Mean Corpuscular Hemoglobin Concent 33 g/dL (31-37) Red Cell Distribution Width 13.4 % (11.5-14.5) Platelet Count 261 x10^3/uL (140-400) Neutrophils (%) (Auto) 75 % (31-73) H Lymphocytes (%) (Auto) 16 % (24-48) L Monocytes (%) (Auto) 7 % (0-9) Eosinophils (%) (Auto) 1 % (0-3) Basophils (%) (Auto) 1 % (0-3) Neutrophils # (Auto) 8.9 x10^3uL (1.8-7.7) H Lymphocytes # (Auto) 1.9 x10^3/uL (1.0-4.8) Monocytes # (Auto) 0.9 x10^3/uL (0.0-1.1) Eosinophils # (Auto) 0.1 x10^3/uL (0.0-0.7) Basophils # (Auto) 0.1 x10^3/uL (0.0-0.2) Segmented Neutrophils % 76 % (35-66) H Lymphocytes % 16 % (24-48) L Monocytes % 5 % (0-10) Eosinophils % 1 % (0-5) Basophils % 2 % (0-3) Platelet Estimate Adequate (ADEQUATE) Sodium Level 143 mmol/L (136-145) Potassium Level 4.2 mmol/L (3.5-5.1) Chloride Level 106 mmol/L (98-107) Carbon Dioxide Level 32 mmol/L (21-32) Anion Gap 5 (6-14) L Blood Urea Nitrogen 16 mg/dL (8-26) Creatinine 0.9 mg/dL (0.7-1.3) Estimated GFR (Cockcroft-Gault) 88.3 BUN/Creatinine Ratio 18 (6-20) Glucose Level 132 mg/dL (70-99) H Calcium Level 9.4 mg/dL (8.5-10.1) Total Bilirubin 0.6 mg/dL (0.2-1.0) Aspartate Amino Transferase (AST) 15 U/L (15-37) Alanine Aminotransferase (ALT) 24 U/L (16-63) Alkaline Phosphatase 82 U/L (46-116) Total Protein 7.7 g/dL (6.4-8.2) Albumin 4.0 g/dL (3.4-5.0) Albumin/Globulin Ratio 1.1 (1.0-1.7) Current Medications: Meds: Current Medications Multi-Ingredient Ointment (Analgesic [place]) 1 mary PRN QID PRN TP MUSCLE PAIN; Start 12/25/16 at 00:00 Al Hydroxide/Mg Hydroxide (Mylanta Plus Xs) 15 ml PRN AFTMEALHC PRN PO DYSPEPSIA; Start 12/25/16 at 00:00 Magnesium Hydroxide (Milk Of Magnesia) 2,400 mg PRN QHS PRN PO CONSTIPATION Last administered on 01/01/17 08:41; Start 12/25/16 at 00:00 Acetaminophen (Tylenol) 650 mg PRN Q6HRS PRN PO PAIN; Start 12/25/16 at 00:30 Alprazolam (Xanax) 0.25 mg DAILY PO Last administered on 01/05/17 08:44; Start 12/25/16 at 09:00 Alprazolam (Xanax) 0.25 mg PRN Q6HRS PRN PO ANXIETY / AGITATION Last administered on 01/04/17 10:05; Start 12/25/16 at 00:30 Docusate Sodium (Colace) 100 mg DAILY PO Last administered on 01/05/17 08:42 ; Start 12/25/16 at 09:00 Gabapentin (Neurontin) 100 mg TID PO Last administered on 01/05/17 20:08; Start 12/25/16 at 09:00 Levothyroxine Sodium (Synthroid) 112 mcg DAILY06 PO Last administered on 05:39; Start 12/25/16 at 06:00; Stop 12/26/16 at 15:10; Status DC Memantine (Namenda) 10 mg BID PO Last administered on 01/05/17 20:09; Start 12/25/16 at 09:00 Olanzapine (ZyPREXA) 2.5 mg BID PO Last administered on 01/05/17 20:09; Start 12/25/16 at 09:00 Sertraline HCl (Zoloft) 150 mg DAILY PO Last administered on 01/05/17 08:44; Start 12/25/16 at 09:00 Trazodone HCl (Desyrel) 75 mg HS PO Last administered on 01/05/17 20:09; Start 12/25/16 at 21:00 Potassium Chloride (Klor-Con) 20 meq BID PO Last administered on 01/05/17 20: 09; Start 12/25/16 at 21:00 Quetiapine Fumarate (SEROquel) 25 mg QHS PO Last administered on 01/05/17 20: 09; Start 12/25/16 at 21:00 Levothyroxine Sodium (Synthroid) 137 mcg DAILY06 PO Last administered on 05:11; Start 12/27/16 at 06:00 Divalproex Sodium (Depakote Sprinkles) 125 mg BID92 PO Last administered on 13:10; Start 12/27/16 at 09:00; Stop 01/04/17 at 18:49; Status DC Divalproex Sodium (Depakote Sprinkles) 125 mg TID@0900,1300,1700 PO Last administered on 01/05/17 17:03; Start 01/05/17 at 09:00 Quetiapine Fumarate (SEROquel) 12.5 mg DAILY PO Last administered on 08:44; Start 01/05/17 at 09:00 Active Scripts Active Reported Seroquel (Quetiapine Fumarate) 25 Mg Tablet 25 Mg PO QHS Klor-Con M20 (Potassium Chloride) 20 Meq Tab.er.prt 20 Meq PO BID Levothyroxine Sodium 137 Mcg Tablet 137 Mcg PO DAILYAC Divalproex Sodium 125 Mg Cap.sprink 125 Mg PO BID92 Alprazolam 0.25 Mg Tablet 0.25 Mg PO PRN Q6HRS PRN Tylenol (Acetaminophen) 325 Mg Tablet 2 Tab PO PRN Q6HRS PRN Trazodone Hcl 50 Mg Tablet 75 Mg PO HS Sertraline Hcl 100 Mg Tablet 150 Mg PO DAILY Zyprexa (Olanzapine) 2.5 Mg Tablet 2.5 Mg PO BID Namenda (Memantine Hcl) 10 Mg Tablet 10 Mg PO BID Gabapentin 100 Mg Capsule 100 Mg PO TID Colace (Docusate Sodium) 100 Mg Capsule 100 Mg PO DAILY Alprazolam 0.25 Mg Tablet 0.25 Mg PO DAILY14 Diagnosis: Problems: (1) Anxiety disorder (2) Dementia, vascular, with delusions (3) Dementia, vascular, with depression (4) Dementia in Alzheimer's disease with depression (5) Dementia in Alzheimer's disease with delusions (6) Impulse control disorder LETICIA GUERRA MD Jan 05, 2017 22:05
[2017-01-06] MEDS: LEVOTHYROXINE 137 MCG TABLET PO SCH (05:07)
[2017-01-06 06:09] VITALS: BP 135/88
[2017-01-06] MEDS: DIVALPROEX 125 MG CAP.SPRINK PO SCH ×3 (08:18→17:02)
[2017-01-06] MEDS: DOCUSATE SODIUM 100 MG CAPSULE PO SCH (08:18)
[2017-01-06] MEDS: SERTRALINE 50 MG TABLET. PO SCH (08:19)
[2017-01-06] MEDS: OLANZapine 2.5 MG TABLET PO SCH ×2 (08:19→19:46)
[2017-01-06] MEDS: QUEtiapine 25 MG TABLET. PO SCH ×2 (08:19→19:45)
[2017-01-06] MEDS: ALPRAZolam 0.25 MG TABLET PO SCH (08:19)
[2017-01-06] MEDS: POTASSIUM CHLORIDE 20 MEQ TABLET.ER. PO SCH ×2 (08:19→19:46)
[2017-01-06] MEDS: MEMANTINE 10 MG TABLET. PO SCH ×2 (08:19→19:46)
[2017-01-06] MEDS: GABAPENTIN 100 MG CAPSULE. PO SCH ×3 (08:19→19:45)
[2017-01-06 16:13] VITALS: BP 93/66
[2017-01-06] MEDS: traZODone 50 MG TABLET. PO SCH (19:46)
[2017-01-07] MEDS: LEVOTHYROXINE 137 MCG TABLET PO SCH (05:39)
[2017-01-07 06:14] VITALS: BP 122/67
[2017-01-07] MEDS: DOCUSATE SODIUM 100 MG CAPSULE PO SCH (08:13)
[2017-01-07] MEDS: DIVALPROEX 125 MG CAP.SPRINK PO SCH ×3 (08:13→17:12)
[2017-01-07] MEDS: POTASSIUM CHLORIDE 20 MEQ TABLET.ER. PO SCH ×2 (08:13→19:18)
[2017-01-07] MEDS: ALPRAZolam 0.25 MG TABLET PO SCH (08:14)
[2017-01-07] MEDS: SERTRALINE 50 MG TABLET. PO SCH (08:14)
[2017-01-07] MEDS: MEMANTINE 10 MG TABLET. PO SCH ×2 (08:14→19:17)
[2017-01-07] MEDS: QUEtiapine 25 MG TABLET. PO SCH ×2 (08:14→19:17)
[2017-01-07] MEDS: GABAPENTIN 100 MG CAPSULE. PO SCH ×3 (08:14→19:17)
[2017-01-07] MEDS: OLANZapine 2.5 MG TABLET PO SCH ×2 (08:14→19:17)
[2017-01-07 09:56] LABS: BASO % 0 % (0-3); EOS % 1 % (0-3); HEMOGLOBIN 14.8 g/dL (13.0-17.5); LYMPH # 0.9 x10^3/uL (1.0-4.8); LYMPH % 10 % (24-48); MEAN CORPUSCULAR HEMOGLOBIN 31 pg (25-35); MEAN CORPUSCULAR HGB CONC 34 g/dL (31-37); MEAN CORPUSCULAR VOLUME 92 fL (79-100); MONO # 0.6 x10^3/uL (0.0-1.1); MONO % 6 % (0-9); NEUT # 7.6 x10^3uL (1.8-7.7); NEUT % 83 % (31-73); PLATELET COUNT 245 x10^3/uL (140-400); RED BLOOD COUNT 4.77 x10^6/uL (4.30-5.70); RED CELL DISTRIBUTION WIDTH 13.4 % (11.5-14.5); WHITE BLOOD COUNT 9.2 x10^3/uL (4.0-11.0)
[2017-01-07 10:08] LABS: ALBUMIN 3.9 g/dL (3.4-5.0); ALBUMIN/GLOBULIN RATIO 1.1 (1.0-1.7); ALK PHOS 81 U/L (46-116); ALT (SGPT) 23 U/L (16-63); ANION GAP 7 (6-14); AST (SGOT) 16 U/L (15-37); BLOOD UREA NITROGEN 13 mg/dL (8-26); BUN/CREATININE RATIO 14 (6-20); CALCIUM 9.5 mg/dL (8.5-10.1); CARBON DIOXIDE 32 mmol/L (21-32); CHLORIDE 104 mmol/L (98-107); CREATININE 0.9 mg/dL (0.7-1.3); GFR 88.3; GLUCOSE 124 mg/dL (70-99); POTASSIUM 4.1 mmol/L (3.5-5.1); SODIUM 143 mmol/L (136-145); TOTAL BILIRUBIN 0.6 mg/dL (0.2-1.0); TOTAL PROTEIN 7.6 g/dL (6.4-8.2)
[2017-01-07 10:12] LABS: VAL ACID 24 mcg/mL (50-100)
--- NOTE | 2017-01-07 11:36 | PN ---
DATE: 01/05/2017 This note covers elements, not covered in my initial note of 01/05/2017. SUBJECTIVE: I met with the patient morning 01/05/2017. The patient had a shower previous evening, but little more cooperative. Depakote is being started. He is tolerating it well. REVIEW OF SYSTEMS: No CV, , pulmonary, eye, ENT system symptoms on review. Reliability poor. MENTAL STATUS EXAM: Oriented to himself. Insight, judgment, recent and remote memory, attention, concentration, fund of knowledge poor, consistent with his diagnosis mentioned in my initial note. PLAN: Continue current psychotropics, reviewed drug interactions, risk/benefit ratio favors no further change for now. MAN Nilda GUERRA MD DR: WENDY/evie JOB#: [id number] / [id number]
[2017-01-07] MEDS: traZODone 50 MG TABLET. PO SCH (19:18)
[2017-01-08] MEDS ORDERED: MAG355OR17 PO (00:43)
[2017-01-08] MEDS ORDERED: MAGN2400 PO (00:44)
[2017-01-08] MEDS ORDERED: METH29OI TP (00:45)
[2017-01-08] MEDS ORDERED: QUET25TA5 PO (00:46)
[2017-01-08] MEDS ORDERED: CHOL10003 PO (00:47)
--- NOTE | 2017-01-08 03:13 | PN ---
DATE: 01/07/2017 SUBJECTIVE: The patient was seen today, met with the staff, chart reviewed and covering for Dr. León. Staff reports increased confusion, incoherent, not able to hold a conversation. The patient is somewhat unsteady, but able to walk. The patient apparently was on hospice care while she was at the [facility]. The patient also was seen by Dr. Padilla, a neurologist, and also an MRI done here. The patient apparently not presenting with any major behavioral problems at this time, but the patient continues to show significant cognitive deficits. OBJECTIVE: VITAL SIGNS: Temperature 98.1, blood pressure 122/67, respiration 17, pulse 78, O2 sat 97%. Slept about 8 hours last night. MEDICATIONS: Reviewed. LABORATORY DATA: Reviewed. The patient's Depakote level was 67. The patient currently on Depakote, Zyprexa p.r.n., Remeron 15 mg at night, Risperdal 0.25 mg b.i.d., trazodone 150 mg at night, also Depakote Sprinkles 250 at night. The patient is not having any side effects to the medications. ASSESSMENT: Major neurocognitive disorder, possibly Alzheimer's and vascular with depression and delusions and behavioral disturbances. PLAN: Continue with the medication. Plan is for discharge to return to [facility] most likely tomorrow. GUTIERREZ FINK MD DR: RADHA/evie JOB#: [id number] / [id number]
[2017-01-08] MEDS: LEVOTHYROXINE 137 MCG TABLET PO SCH (06:17)
[2017-01-08 06:44] VITALS: BP 118/78
[2017-01-08] MEDS: DIVALPROEX 125 MG CAP.SPRINK PO SCH (08:42)
[2017-01-08] MEDS: GABAPENTIN 100 MG CAPSULE. PO SCH (08:42)
[2017-01-08] MEDS: SERTRALINE 50 MG TABLET. PO SCH (08:42)
[2017-01-08] MEDS: ALPRAZolam 0.25 MG TABLET PO SCH (08:42)
[2017-01-08] MEDS: DOCUSATE SODIUM 100 MG CAPSULE PO SCH (08:42)
[2017-01-08] MEDS: OLANZapine 2.5 MG TABLET PO SCH (08:42)
[2017-01-08] MEDS: MEMANTINE 10 MG TABLET. PO SCH (08:42)
[2017-01-08] MEDS: POTASSIUM CHLORIDE 20 MEQ TABLET.ER. PO SCH (08:42)
[2017-01-08] MEDS: QUEtiapine 25 MG TABLET. PO SCH (08:43)
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
== END 2017-01-08 11:07 | disposition home or self-care (01) | DRG 884 ==
LOC: ER 20:28 → GEROPSY 23:21
PROVIDERS: ADMIT Psychiatry & Neurology Psychiatry; ATTEND Psychiatry & Neurology Psychiatry
DX: F01.51 Vascular dementia, unspecified severity, with behavioral disturbance (principal); F02.81 Dementia in other diseases classified elsewhere, unspecified severity, with behavioral disturbance; G30.9 Alzheimer's disease, unspecified; E03.9 Hypothyroidism, unspecified; F22 Delusional disorders; F32.9 Major depressive disorder, single episode, unspecified; F41.9 Anxiety disorder, unspecified; F63.9 Impulse disorder, unspecified; G25.3 Myoclonus; R29.6 Repeated falls; Z66 Do not resuscitate; R26.81 Unsteadiness on feet
CPT/HCPCS: 36415; 70450; 80053; 80061; 80164; 80307; 81001; 82306; 82607; 83036; 83540; 83550; 83735; 84436; 84443; 84480; 85007; 85025; 85027; 86592; 86593; 93005; G0480; P9612; 99285-25; G0479